=== PATIENT | female | born 1975 | race Caucasian/White ===

== ENCOUNTER 2024-08-12 14:27 | Outpatient (AMB) | payer MEDICAID, SELFPAY ==
[2024-08-12 14:38] VITALS: BP 153/98; PULSE 82; RESP 18; TEMP 36.3; O2SAT 96; BMI 30.6
--- NOTE | 2024-08-12 14:38 | PD.RESCLINIC ---
Vital Signs 08/12/24 14:38 Height 1.83 m Height Method Stated Weight 102.512 kg Weight Measurement Method Standing Scale BMI 30.6 BP 153/98 H Blood Pressure Source Automatic Cuff Blood Pressure Location Left Upper Arm Position Sitting Respiration 18 Pulse 82 Pulse Source Monitor Temp 97.3 F Temp Source Temporal Artery Scan Pulse Oximetry (%) 96 Oxygen Delivery Method Room Air Allergies/Meds Allergies & Medications Allergies morphine Allergy (Severe, Verified 08/12/24 14:39) ITCHING/ALL OVER Medication Reconciliation lisinopril 40 mg tablet 40 mg PO QDAY HTN #30 tabs 01/15/24 [Rx Confirmed 08/12/24] metaxalone 800 mg tablet 800 mg PO TID PRN muscle pain #30 tabs 01/29/24 [Rx Confirmed 08/12/24] albuterol sulfate 90 mcg/actuation aerosol inhaler (Ventolin HFA) 1 inh inhalation QID #8.5 grams 03/28/24 [Rx Confirmed 08/12/24] hydrochlorothiazide 25 mg tablet 25 mg PO QDAY HTN #30 tabs 04/08/24 [Rx Confirmed 08/12/24] tramadol 50 mg tablet 50 mg PO TID PRN pain #90 tabs 05/13/24 [Rx Confirmed 08/12/24] varenicline 1 mg tablet (Chantix Continuing Month Box) 1 mg PO BID #56 tabs 05/13/24 [Rx Confirmed 08/12/24] semaglutide 2 mg/dose (8 mg/3 mL) subcutaneous pen injector (Ozempic) 2 mg (0.75 mL) subcut QWEEK #3 mL 07/29/24 [Rx Confirmed 08/12/24] albuterol sulfate 90 mcg/actuation aerosol inhaler 2 puff inhalation Q6H PRN shortness of breath or wheezing 30 days #8.5 grams 08/12/24 [Rx] apixaban 5 mg tablet (Eliquis) 5 mg PO BID Pulmonary embolus #60 tabs 08/12/24 [Rx] levofloxacin 750 mg tablet 750 mg PO QDAY 5 days #5 tabs 08/12/24 [Rx] nicotine (polacrilex) 4 mg buccal lozenge 4 mg buccal Q4H PRN nicotine cravings #108 ea 08/12/24 [Rx] nicotine 21mg/24hr-14mg/24hr-7mg/24hr daily transderm patches,sequentl 1 patch transdermal QDAY #56 patches 08/12/24 [Rx] MA Intake Visit Data Collection New Patient or Established: Established Patient (seen at [facility] within 3 years) Seen by Clinical Staff ONLY (RN/SCARLET): No Pain Present Currently: Yes Pain Location: Back Pain scale:: 6 Pain Scale Used: Blanco-Boogie/Numerical [employer] Required: No PCP or OBGYN visit in last 3 months: Yes Hx Now: No Do You Feel Safe at Home: Yes Authorities Contacted: N/A Smoking Status Smoking Status: Current every day smoker Cessation Counseling Provided: LETITIA was advised that quitting smoking is the single most important factor to protect the health of themselves and their family. Discussed the benefits of quitting smoking with patient. Encouraged patient to quit smoking and provided Cessation assistance materials and resources. Tobacco Use: Cigarette Years smoked: 33 Are you interested in quitting?: Yes Would you like additional Smoking Cessation Counseling?: No Immunization / Flu Flu Vaccine in the Last 12 Months: No Flu Vaccine Exclusion Criteria: No Exclusion Criteria Past Medical History Past Medical History CARDIAC: Positive Aneurysm (self) and Hypertension; Negative Cardiac Disorders or Congestive Heart Failure RESPIRATORY: Negative Chronic Obstructive Pulmonary Disease (COPD) or Asthma GENITOURINARY: Negative Renal Disease REPRODUCTIVE: Positive Previous Pregnancies (9 preganancies) ENDOCRINE: Negative Diabetes Mellitus Type 1 or Diabetes Mellitus Type 2 HEMATOLOGIC: Positive Blood Disorders and Clotting Problems; Negative Sickle Cell Disease OTHER HISTORY: Negative Autoimmune Disease Family History FAMILY HISTORY: Positive Family Psychiatric Problems, Family Respiratory Disorders (COPD, bronchitis, emphysema), Family Cardiac Disorders (Mother irregular heartbeat, grandfather heart problems), Family Gastrointestinal Problems, Family Cancer and Family Surgery; Negative Family Anesthesia Reaction Surgical History SURGICAL: Positive Tubal Ligation Social History SMOKING STATUS: Smoking status: Current every day smoker PACK YEARS: Pack-Years: 33 ALCOHOL: Alcohol Intake: Never ALCOHOL FREQUENCY: Alcohol Intake Frequency: A Few Times a Month HOUSING: Housing: House LIVES WITH: Lives With: Alone Patient Portal Questionairfei Social History Living Situation History Housing: House Tobacco History Smoking Status: Current every day smoker Packs per Day: 2 Pack-Years: 33 Alcohol History Alcohol Intake: Never Alcohol Intake Frequency: A Few Times a Month Domestic Abuse History Do You Feel Safe at Home: Yes Review of Systems Report any current symptoms Only answer those that you have currently: Past Medical History Past Medical History Have you ever been diagnosed with any of the following: Cardiology Problems Aneurysm: Yes (self) Congestive Heart Failure: No Hypertension: Yes Respiratory Problems Chronic Obstructive Pulmonary Disease (COPD): No Asthma: No Genital/Urinary Problems Renal Disease: No Reproductive Problems Previous Pregnancies: Yes (9 preganancies) Endocrine Problems Diabetes Mellitus Type 1: No Diabetes Mellitus Type 2: No Blood Problems Sickle Cell Disease: No Clotting Problems: Yes Other Problems Autoimmune Disease: No History of Present Illness HPI Narrative 49-year-old female with past medical history of factor V Leyden mutation, HTN, aneurysm and [id number] smoking history presents as walk-in to clinic for acute dyspnea. Patient is concerned she has pneumonia or blood clots in her lungs. Patient endorses paroxysmal nocturnal dyspnea, orthopnea which improves when sitting up or sleeping on her left side, and dyspnea on exertion (gets SOB when walking to daughter's house, 4 houses away). Dyspnea has been going on for last 2 weeks, and is apparent during conversation with patient. Patient endorses having flulike symptoms approximately 1 week ago, and endorses fever, chills, palpitations, pleuritic chest pain, N/V/D/abd pain, and LUTS which have all resolved however productive cough of yellow sputum remains. Dyspnea has not improved with her inhaler which she uses 2-4 times per day. Additionally, patient mentions she has not taken Eliquis in approximately 1 month. Review of Systems Review of Systems Systems Reviewed: All systems reviewed, normal except as documented Objective/Exam Narrative Physical exam: Gen: AAOx3, Appears in mild distress due to conversational dyspnea, pleasant to speak with, answers questions appropriately HEENT: NCAT, PERRLA, EOMI, MMM, no LAD, ?JVD vs accessory muscle use CVS: normal S1, S2. RRR. No MRG Resp: CTA B/L however significantly diminished with decreased air flow. No rhonchi, rales, crackles or wheezing. Using accessory muscles Abd: soft, non-tender, non-distended. BS+ in all 4 quadrants MSK: Good ROM in BUE & BLE. Trace edema noted. Neuro: CN II-XII grossly intact. Strength 5/5 in BUE & BLE. Assessment & Plan Diagnosis / Problem List (1) Acute dyspnea: Status: Acute Assessment & Plan: Differentials include bacterial versus viral pneumonia, COPD exacerbation, PE, new onset CHF Plan: Will obtain stat chest x-ray to rule out pneumonia CBC, CMP, BNP ordered Will order CTA to rule out PE, although this may take several weeks for prior Auth. This was discussed with patient and recommendation was made for patient to present to ED at [facility] for immediate workup. Patient refused to go to ED at this time, and stated she would like to pursue workup outpatient. She was advised to immediately alert EMS if her symptoms worsened Will order Levaquin 750 mg for 5 days; Inhaler refilled (2) Factor V deficiency: Status: Chronic Assessment & Plan: Patient has been without Eliquis for approximately 1 month, now presented with acute dyspnea x 2 weeks Well score was 1.5, however does not include risk for VTE and factor V Leyden deficiency HR and SaO2 on RA were WNL Plan: Dyspnea may be related to pneumonia, however CTA chest was ordered to rule out PE Eliquis was refilled (3) Currently attempting to quit smoking: Status: Acute Assessment & Plan: Patient endorses motivation to quit smoking as she does not like current dyspnea Plan: Will order nicotine patch and lozenges for acute cravings Encourage patient to resume varenicline Advised patient that nicotine may be causing palpitations she was experiencing ~1-2 weeks ago Orders: Orders XR chest 1V 08/12/24 R05.8 - Other specified cough, R06.00 - Dyspnea, unspecified Comprehensive Metabolic Panel 1 Day R06.00 - Dyspnea, unspecified CBC Auto Diff Post-Transfusion 08/12/24 R05.8 - Other specified cough, R06.00 - Dyspnea, unspecified B-Type Natriuretic Peptide 1 Day R06.00 - Dyspnea, unspecified CT angio chest 4 Weeks R06.00 - Dyspnea, unspecified, Z86.2 - Personal history of diseases of the blood and blood-forming organs and certain disorders involving the immune mechanism Office Procedures [facility] Level of Care Nursing/Assessment Patient Status: Established Patient Nursing Assessment/Reassessment: Medication Reconciliation, Update PMH in EMR and Vital Signs Coordination of Care: Complex Care and Chronic Disease 1-5, Consent,records obtained, informed consent, Education Simp Pt/Fam, Lab and Imaging orders and Staff clarify orders Established Patient Charge Established Patient Point Assignment: 100 Established Patient Point Charge: EP Level 3 (80-115)
== END 2024-08-12 16:14 | disposition home or self-care (01) ==
LOC: HODAHC 14:27
PROVIDERS: Supervising Provider Internal Medicine; Visit Provider Student in an Organized Health Care Education/Training Program
DX: R06.00 Dyspnea, unspecified (principal); D68.2 Hereditary deficiency of other clotting factors; F17.210 Nicotine dependence, cigarettes, uncomplicated; I10 Essential (primary) hypertension
CPT/HCPCS: 99213; G0463

== ENCOUNTER → 2024-08-12 | Outpatient (CLI) | payer MEDICAID, SELFPAY ==
--- NOTE | 2024-08-12 16:24 | XR_ITS ---
Examination: PA chest single view Technique: Upright PA chest single view Exam date and time: August 12, 2024 7005 hours Comparison March 28, 2024 Indications: Coughing one week. Findings: Early bibasilar left perihilar pneumonia Normal heart size Moderate osteopenia Impression: Early bibasilar left perihilar pneumonia
== END | disposition home or self-care (01) ==
LOC: CDIM 16:18
PROVIDERS: Referring Provider Student in an Organized Health Care Education/Training Program; Visit Provider Student in an Organized Health Care Education/Training Program
DX: J18.9 Pneumonia, unspecified organism (principal)
CPT/HCPCS: 71045

== ENCOUNTER 2024-11-03 14:39 | Outpatient (AMB) | payer MEDICAID, SELFPAY ==
[2024-11-03 14:48] VITALS: BP 150/93; PULSE 81; RESP 16; TEMP 35.9; O2SAT 96; BMI 29.0
--- NOTE | 2024-11-03 14:48 | ACNOTE_ITS ---
Vital Signs 11/03/24 14:48 Height 1.83 m Height Method Stated Weight 97.296 kg Weight Measurement Method Standing Scale BMI 29.0 BP 150/93 H Blood Pressure Source Automatic Cuff Blood Pressure Location Left Upper Arm Position Sitting Respiration 16 Pulse 81 Pulse Source Monitor Temp 96.6 F L Temp Source Oral Pulse Oximetry (%) 96 Oxygen Delivery Method Room Air Allergies/Meds Allergies & Medications Allergies morphine Allergy (Severe, Verified 11/03/24 14:49) ITCHING/ALL OVER Medication Reconciliation lisinopril 40 mg tablet 40 mg PO QDAY HTN #30 tabs 01/15/24 [Rx Confirmed 11/03/24] metaxalone 800 mg tablet 800 mg PO TID PRN muscle pain #30 tabs 01/29/24 [Rx Confirmed 11/03/24] albuterol sulfate 90 mcg/actuation aerosol inhaler (Ventolin HFA) 1 inh inhalation QID #8.5 grams 03/28/24 [Rx Confirmed 11/03/24] hydrochlorothiazide 25 mg tablet 25 mg PO QDAY HTN #30 tabs 04/08/24 [Rx Confirmed 11/03/24] tramadol 50 mg tablet 50 mg PO TID PRN pain #90 tabs 05/13/24 [Rx Confirmed 11/03/24] varenicline 1 mg tablet (Chantix Continuing Month Box) 1 mg PO BID #56 tabs 05/13/24 [Rx Confirmed 11/03/24] semaglutide 2 mg/dose (8 mg/3 mL) subcutaneous pen injector (Ozempic) 2 mg (0.75 mL) subcut QWEEK #3 mL 07/29/24 [Rx Confirmed 11/03/24] albuterol sulfate 90 mcg/actuation aerosol inhaler 2 puff inhalation Q6H PRN shortness of breath or wheezing 30 days #8.5 grams 08/12/24 [Rx Confirmed 11/03/24] apixaban 5 mg tablet (Eliquis) 5 mg PO BID Pulmonary embolus #60 tabs 08/12/24 [Rx Confirmed 11/03/24] nicotine (polacrilex) 4 mg buccal lozenge 4 mg buccal Q4H PRN nicotine cravings #108 ea 08/12/24 [Rx Confirmed 11/03/24] nicotine 21mg/24hr-14mg/24hr-7mg/24hr daily transderm patches,sequentl 1 patch transdermal QDAY #56 patches 08/12/24 [Rx Confirmed 11/03/24] semaglutide 2 mg/dose (8 mg/3 mL) subcutaneous pen injector (Ozempic) 2 mg (0.75 mL) subcut QWEEK #3 mL 11/03/24 [Rx] MA Intake Visit Data Collection New Patient or Established: Established Patient (seen at [facility] within 3 years) Seen by Clinical Staff ONLY (RN/MA): No Pain Present Currently: No Pain scale:: 0 Pain Scale Used: Blanco-Boogie/Numerical Urban Forester Required: No PCP or OBGYN visit in last 3 months: Yes Date of Last PCP or OBGYN visit: 08/12/24 Hx Now: No Date of Last Menstrual Period: 10/25/24 Do You Feel Safe at Home: Yes Authorities Contacted: N/A Smoking Status Smoking Status: Current every day smoker Cessation Counseling Provided: LETITIA was advised that quitting smoking is the single most important factor to protect the health of themselves and their family. Discussed the benefits of quitting smoking with patient. Encouraged patient to quit smoking and provided Cessation assistance materials and resources. Tobacco Use: Cigarette Years smoked: 33 Are you interested in quitting?: No Would you like additional Smoking Cessation Counseling?: No Immunization / Flu Flu Vaccine in the Last 12 Months: No Flu Vaccine Exclusion Criteria: No Exclusion Criteria Past Medical History Past Medical History CARDIAC: Positive Aneurysm (self) and Hypertension; Negative Cardiac Disorders or Congestive Heart Failure RESPIRATORY: Negative Chronic Obstructive Pulmonary Disease (COPD) or Asthma GENITOURINARY: Negative Renal Disease REPRODUCTIVE: Positive Previous Pregnancies (9 preganancies) ENDOCRINE: Negative Diabetes Mellitus Type 1 or Diabetes Mellitus Type 2 HEMATOLOGIC: Positive Blood Disorders and Clotting Problems; Negative Sickle Cell Disease OTHER HISTORY: Negative Autoimmune Disease Family History FAMILY HISTORY: Positive Family Psychiatric Problems, Family Respiratory Disorders (COPD, bronchitis, emphysema), Family Cardiac Disorders (Mother irregular heartbeat, grandfather heart problems), Family Gastrointestinal Problems, Family Cancer and Family Surgery; Negative Family Anesthesia Reaction Surgical History SURGICAL: Positive Tubal Ligation Social History SMOKING STATUS: Smoking status: Current every day smoker PACK YEARS: Pack-Years: 33 ALCOHOL: Alcohol Intake: Never ALCOHOL FREQUENCY: Alcohol Intake Frequency: A Few Times a Month HOUSING: Housing: House LIVES WITH: Lives With: Alone Patient Portal Questionaires PHQ-9 PHQ-2 Over the last 2 weeks, how often have you been bothered by any of the following problems? 1. Little interest or pleasure in doing things: not at all 2. Feeling down, depressed, or hopeless: not at all Total score: 0 PHQ-9 3. Trouble falling or staying asleep, or sleeping too much: Not at all 4. Feeling tired or having little energy: Not at all 5. Poor appetite or overeating: Not at all 6. Feeling bad about yourself - or that you are a failure or have let yourself or your family down: Not at all 7. Trouble concentrating on things, such as reading the newspaper or watching television: Not at all 8. Moving or speaking so slowly that other people could have noticed? - Or the opposite - being so fidgety or restless that you have been moving around a lot more than usual: not at all 9. Thoughts that you would be better off or of hurting yourself in some way: Not at all Total score: 0 Source: Developed by Drs. Khoa Toledo, Mariam Metcalf, Vj Crandall and colleagues, with an educational carina from [email or web address]. Depression screen completed yes Social History Living Situation History Housing: House Tobacco History Smoking Status: Current every day smoker Packs per Day: 2 Pack-Years: 33 Alcohol History Alcohol Intake: Never Alcohol Intake Frequency: A Few Times a Month Domestic Abuse History Do You Feel Safe at Home: Yes Review of Systems Report any current symptoms Only answer those that you have currently: Past Medical History Past Medical History Have you ever been diagnosed with any of the following: Cardiology Problems Aneurysm: Yes (self) Congestive Heart Failure: No Hypertension: Yes Respiratory Problems Chronic Obstructive Pulmonary Disease (COPD): No Asthma: No Genital/Urinary Problems Renal Disease: No Reproductive Problems Previous Pregnancies: Yes (9 preganancies) Endocrine Problems Diabetes Mellitus Type 1: No Diabetes Mellitus Type 2: No Blood Problems Sickle Cell Disease: No Clotting Problems: Yes Other Problems Autoimmune Disease: No History of Present Illness HPI Narrative 08/12/2024 49-year-old female with past medical history of factor V Leyden mutation, HTN, aneurysm and [id number] smoking history presents as walk-in to clinic for acute dyspnea. Patient is concerned she has pneumonia or blood clots in her lungs. Patient endorses paroxysmal nocturnal dyspnea, orthopnea which improves when sitting up or sleeping on her left side, and dyspnea on exertion (gets SOB when walking to daughter's house, 4 houses away). Dyspnea has been going on for last 2 weeks, and is apparent during conversation with patient. Patient endorses having flulike symptoms approximately 1 week ago, and endorses fever, chills, palpitations, pleuritic chest pain, N/V/D/abd pain, and LUTS which have all resolved however productive cough of yellow sputum remains. Dyspnea has not improved with her inhaler which she uses 2-4 times per day. Additionally, patient mentions she has not taken Eliquis in approximately 1 month. 11/03/24 49 y/o female patient with significant medical history for HTN, factor V Leyden mutation and current smoker came to clinic for lab results and medication refill. Patient was last seen in clinic on 08/12/24 for chest pain and SOB. Since last visit, patient is doing well, does not complain of chest pain or SOB. Patient continues to smoke, but is willing to quit. She was prescribed nicotine patch but patient has not started it yet. Labs were completed in [facility], reviewed lab with patient. CBC and CMP indicated mild elevation of HgB, Hct, creatinine (1.19). Most likely due to concentration/dehydration. Patient admits not drinking enough water but does drink soda. Educated and encouraged patient with smoking cessation. Refilled Ozempic for patient, she has approximetly lost 30 lbs since starting medicaiton. Will follow up with patient in x2 months. Review of Systems Review of Systems Systems Reviewed: All systems reviewed, normal except as documented Objective/Exam Narrative Physical exam: Constitutional: well-developed, well-nourished, in no acute distress, lying in bed HEENT: NCAT, EOMI, reactive round pupils b/l, patent nares b/l, moist mucous membranes Lung: CTAB, no wheezing, no rhonchi Heart: Regular S1S2, no murmurs, gallops, or rubs Abdomen: Soft, non-distended, non-tender, bowel sounds present throughout Extremities: No cyanosis, clubbing, or edema, LE pulses present b/l Neurologic: No focal sensory or motor deficits noted, AOx3, appropriate affect Skin: Warm, dry, no lesions or rashes noted Assessment & Plan Diagnosis / Problem List (1) Obesity (BMI 30.0-34.9): Status: Acute Assessment & Plan: Patient started on ozempic for weight loss Has lost approx 30 lbs Continues to drink soda Plan: -Encouraged healthy eating -Refilled Ozempic -Reviewed lab results: A1C 5.4, Infantry Weapons Officer 1.19, eGFR 57 (2) Factor V deficiency: Status: Chronic Assessment & Plan: Patient on Eliquis Vitals WNL Plan: -Continue Eliquis (3) Currently attempting to quit smoking: Status: Acute Assessment & Plan: Patient endorses motivation to quit smoking as she does not like current dyspnea Plan: -Educated patient on smoking sessation -Recommended to start nicotine patch and lozenges for acute cravings -Encourage patient to resume varenicline Office Procedures [facility] Level of Care Nursing/Assessment Patient Status: Established Patient Nursing Assessment/Reassessment: Medication Reconciliation, Update PMH in EMR and Vital Signs Coordination of Care: Complex Care and Chronic Disease 1-5, Consent,records obtained, informed consent, Education Simp Pt/Fam, Lab and Imaging orders, Results/Orders obtained and Staff clarify orders Established Patient Charge Established Patient Point Assignment: 105 Established Patient Point Charge: EP Level 3 (80-115)
== END 2024-11-03 15:22 | disposition home or self-care (01) ==
LOC: HODAHC 14:39
PROVIDERS: Supervising Provider Internal Medicine; Visit Provider Internal Medicine
DX: I10 Essential (primary) hypertension (principal); F17.200 Nicotine dependence, unspecified, uncomplicated; E66.9 Obesity, unspecified; Z68.29 Body mass index [BMI] 29.0-29.9, adult; D68.2 Hereditary deficiency of other clotting factors; Z76.0 Encounter for issue of repeat prescription; Z79.01 Long term (current) use of anticoagulants; Z71.6 Tobacco abuse counseling
CPT/HCPCS: 99213; G0463

== ENCOUNTER 2025-01-21 12:35 | Emergency (ER) | payer BC, SELFPAY ==
[2025-01-21] VITALS (7 sets, daily range): BP systolic 170–192; BP diastolic 93–129; PULSE 86–104; RESP 18–30; TEMP 36.6–36.9; O2SAT 94–100; BMI 32.1
--- NOTE | 2025-01-21 12:55 | XR_ITS ---
Examination: PA lateral chest 2 views TECHNIQUE: Upright PA lateral chest 2 views Date and time: January 21, 2025 1359 hours INDICATIONS: Shortness of breath today. FINDINGS: Mild enlargement cardiac contour Moderate vascular congestion Small right pleural effusion No lobar pneumonia IMPRESSION: Suspicious for early heart failure Moderate vascular congestion Small right pleural effusion
--- NOTE | 2025-01-21 12:55 | XR_ITS ---
Examination: Duplex scan of the lower extremity, unilateral right complete Date and time of exam: January 21, 2025 1305 hours INDICATIONS: Right leg swelling with shortness of breath 2 weeks Technique: Duplex scan of the extremity veins using B-mode/grayscale imaging and Doppler spectral analysis and color flow Attention is directed to internal echogenicity, compression and augmentation involving these veins, color flow assessment, spectral analysis Findings: Major deep venous structures in the extremity demonstrate normal course and caliber. There is no evidence of deep vein thrombosis. Normal color flow and spectral analysis Impression: Negative for DVT.. Positive for nonocclusive thrombus in the superficial greater saphenous vein
--- NOTE | 2025-01-21 12:55 | EKG_ITS ---
[facility] Test Date: 2025-01-21 Pat Name: LETITIA DAWSON Department: Room: - Gender: Female Biostatistics Director: : 1975 Requested By: Aamir Gomez Order Number: [id number] Reading MD: Aamir Gomez Measurements Intervals [place] Rate: 102 P: 42 ID: [id number] QRS: 62 QRSD: 85 T: 34 QT: 347 QTc: 454 Interpretive Statements SINUS TACHYCARDIA NONSPECIFIC T-WAVE ABNORMALITY ABNORMAL RHYTHM ECG Compared to ECG 03/28/2024 11:06:00 T-wave abnormality now present Sinus rhythm no longer present /store/S0/[id number].pdf
--- NOTE | 2025-01-21 12:57 | PD.EDRME ---
Rapid Medical Screening Exam RME Arrival date/time: 01/21/25 12:35 This is a case of 49-year-old female who came in in the emergency room due to shortness of breath chest pain and right lower edema for 3 days worsening of the symptoms this patient decided to start consult here in the emergency room Chief Complaint: Shortness of Breath/Dyspnea Time Seen by Provider: 01/21/25 12:53 Vital signs: Vital Signs Temperature 97.8 F 01/21/25 12:55 Pulse Rate 100 01/21/25 12:55 Respiratory Rate 18 01/21/25 12:55 Blood Pressure 170/93 H 01/21/25 12:55 Pulse Oximetry (%) 94 L 01/21/25 12:55 Oxygen Delivery Method Room Air 01/21/25 12:55
[2025-01-21 13:45] LABS: Basophils # (Auto) 0.1 Thou/mm3 (0.0-0.2); Basophils % (Auto) 1 % (0-2.5); Eosinophils # (Auto) 0.2 Thou/mm3 (0.0-0.5); Eosinophils % (Auto) 2 % (0-10); Hematocrit 41.5 % (36.0-46.0); Hemoglobin 13.9 g/dL (12.0-16.0); Immature Granulocytes % (Auto) 0 % (0-0); Immature Granulocytes Auto 0.03 Thou/mm3 (0.00-0.00); Lymphocytes # (Auto) 2.6 Thou/mm3 (1.0-4.8); Lymphocytes % (Auto) 25 % (10-50); Mean Corpuscular HGB Conc 33.5 g/dl (31.0-37.0); Mean Corpuscular Hemoglobin 29.3 pg (25.0-35.0); Mean Corpuscular Volume 87 fL (80-100); Monocytes # (Auto) 0.6 Thou/mm3 (0.0-0.8); Monocytes % (Auto) 6 % (0-12); Neutrophils # (Auto) 6.8 Thou/mm3 (1.8-7.7); Neutrophils % (Auto) 66 % (37-80); Nucleated Red Blood Cell % 0 /100 WBC (0); Platelet Count 210 Thou/mm3 (140-440); RDW Standard Deviation 44.5 fL (36.4-46.3); Red Blood Count 4.75 Miln/mm3 (4.00-5.20); White Blood Count 10.3 Thou/mm3 (3.6-11.0)
[2025-01-21 13:57] LABS: HCG,Qualitative Serum Negative
[2025-01-21 14:02] LABS: B-Type Natriuretic Peptide 889 pg/mL (0-100)
[2025-01-21 14:03] LABS: Alanine Aminotransferase 54 U/L (10-49); Albumin, Serum 4.2 gm/dL (3.5-5.0); Alkaline Phosphatase 138 U/L (46-116); Anion Gap 7 (7-16); Aspartate Amino Transferase 31 U/L (0-34); BUN/Creatinine Ratio 14 Ratio (12-20); Bilirubin,Total 0.8 mg/dL (0.3-1.2); Blood Urea Nitrogen 18 mg/dL (9-23); Calcium 9.4 mg/dL (8.3-10.6); Calcium (Corrected) 9.4 mg/dL (8.5-10.1); Carbon Dioxide 32.2 mMol/L (20.0-31.0); Chloride 107 mMol/L (98-107); Creatinine (Component) 1.3 mg/dL (0.6-1.3); Estimated Creatinine Clearance 73.4 mL/min (>60); Globulin 2.1 gm/dL (2.3-3.5); Glucose 72 mg/dL (74-106); Osmolality,Calculated 291 (275-295); Potassium 3.9 mMol/L (3.4-5.1); Sodium 146 mMol/L (136-145); Total Protein 6.3 gm/dL (5.7-8.2); eGFR 51 See Note
[2025-01-21 14:29] LABS: D-Dimer 2490 ng/mL (<600)
--- NOTE | 2025-01-21 15:30 | XR_ITS ---
Examination: CTA chest with intravenous contrast 2-D reconstructions 3-D reconstructions, vascular Date and time of exam: Using 2024 1602 hours Comparison June 06, 2023 INDICATIONS: Onset chest pain and shortness of breath beginning several days ago CTDI: vol (mGy) 11 DLP: (mGycm) 420 Technique: Multiple axial sections of the thorax have been obtained. 3 mm slice thickness, from below the hemidiaphragms to above the apices of the lungs. Mediastinal and lung density settings have been obtained. 2-D sagittal and coronal reconstructions. 3-D angiographic renderings, 3-D volume renderings, 3D post processing, vascular maximum intensity projections obtained. Contrast administered is 100 cc Isovue 370 intravenous. Low dose protocols were performed. One or more of the following dose reduction techniques were used; automated exposure control, adjustment of the mA and/or KV according to patient size, use of iterative reconstruction technique. Findings: No thoracic aortic aneurysm dilatation No pulmonary artery filling defects No lobar pneumonia or pulmonary edema Liver is mildly irregular in contour, absent gallbladder Spleen is not enlarged Celiac axis stent Kidneys partially visualized no hydronephrosis Intact osseous structures IMPRESSION: No thoracic aortic aneurysm dilatation or dissection Negative for pulmonary artery emboli No lobar pneumonia or pulmonary edema Suspect primary hepatocellular disease
--- NOTE | 2025-01-21 15:33 | EDNOTE_ITS ---
ED General RME/HPI General Chief complaint: Shortness of Breath/Dyspnea Stated complaint: SOB x 2 weeks, swollen legs Time Seen by Provider: 01/21/25 12:53 Arrival date/time: 01/21/25 12:35 Limitations: no limitations RME / HPI RME / HPI narrative: 01/21/25 12:35 This is a case of 49-year-old female who came in in the emergency room due to shortness of breath chest pain and right lower edema for 3 days worsening of the symptoms this patient decided to start consult here in the emergency room DR. OHARA MAIN ED EVALUATION: 49 year old female presents to the Emergency Department with complaints of shortness of breath and bilateral lower edema and pain. Patient had uncontrollable hypertension. No other symptoms reported at this time. Related Data Previous Rx's ?Medication ?Instructions ?Recorded metaxalone 800 mg tablet 800 mg PO TID PRN muscle dannielle n #30 01/29/24 tabs albuterol sulfate 90 mcg/actuation 1 inh inhalation QI D #8.5 grams 03/28/24 aerosol inhaler (Ventolin HFA) hydrochlorothiazide 25 mg tablet 25 mg PO QDAY HTN #30 tabs 04/08/24 tramadol 50 mg tablet 50 mg PO TID PRN pain #90 ta bs 05/13/24 varenicline tartrate 1 mg tablet 1 mg PO BID #56 tabs 05/13/24 (Chantix Continuing Month Box) semaglutide 2 mg/dose (8 mg/3 mL) 2 mg (0.75 mL) subcu t QWEEK #3 mL 07/29/24 subcutaneous pen injector (Ozempic) nicotine (polacrilex) 4 mg buccal 4 mg buccal Q4H PRN nicotine 08/12/24 lozenge cravings #108 ea nicotine 1 patch transdermal QDAY #56 08/12/24 21mg/24hr-14mg/24hr-7mg/24hr daily patches transderm patches,sequentl albuterol sulfate 2.5 mg/3 mL 2.5 mg (3 mL) inhalation Q4H PRN 01/21/25 (0.083 %) solution for nebulization bronchospasm #180 mL albuterol sulfate 90 mcg/actuation 2 puff inhalation Q 6H PRN 01/21/25 aerosol inhaler shortness of breath or wheez ing 30 days #8.5 grams albuterol sulfate 90 mcg/actuation 2 inh inhalation QI D #1 ea 01/21/25 breath activated powder inhaler,sensor (Proair Digihaler) amlodipine 10 mg tablet (Norvasc) 10 mg PO QDAY #30 ta bs 01/21/25 apixaban 5 mg tablet (Eliquis) 5 mg PO BID Pulmonary e mbolus #60 01/21/25 tabs beclomethasone dipropionate 40 1 inh inhalation BID #1 0.6 grams 01/21/25 mcg/actuation HFA breath activated aerosol (Qvar RediHaler) lisinopril 40 mg tablet 40 mg PO QDAY HTN #30 tabs 0 01/21/25 semaglutide 2 mg/dose (8 mg/3 mL) 2 mg (0.75 mL) subcu t QWEEK #3 mL 01/21/25 subcutaneous pen injector (Ozempic) Allergies Allergy/AdvReac Type Severity Reaction Status Date / Time morphine Allergy Severe ITCHING/ALL Verified 01/21/25 12:43 OVER Review of Systems Review of Systems Systems Reviewed: All systems reviewed, normal except as documented Past Medical History Past Medical History CARDIAC: Positive Cardiac Disorders (htn, chf), Aneurysm (self) and Hypertension RESPIRATORY: Positive Asthma REPRODUCTIVE: Positive Previous Pregnancies (9 preganancies) HEMATOLOGIC: Positive Blood Disorders and Clotting Problems (factor 5) Family History FAMILY HISTORY: Positive Family Psychiatric Problems, Family Respiratory D isorders, Family Cardiac Disorders, Family Gastrointestinal Problems, Family Cancer and Family Surgery Surgical History SURGICAL: Positive Tubal Ligation Social History SMOKING STATUS: Current every day smoker SUBSTANCE USE: does not use ALCOHOL: Never ED Exam General Limitations: Present no limitations General appearance: Present alert and in no apparent distress Head Head exam: Present atraumatic, normocephalic and normal inspection Eye Eye exam: Present normal appearance, PERRL and EOMI ENT ENT exam: Present normal exam, normal oropharynx and mucous membranes moist Neck Neck exam: Present normal inspection, full ROM and trachea midline Chest Chest inspection: Present normal inspection and symmetric chest wall rise Respiratory Respiratory exam: Present normal lung sounds bilaterally Cardiovascular Cardiovascular exam: Present regular rate, normal rhythm, normal heart sounds and other (4/6 mitral regurgitation (MR) murmur) Abdominal Exam Abdominal exam: Present soft and normal bowel sounds Extremities Exam Extremities exam: Present normal inspection and full ROM Back Exam Back exam: Present normal inspection and full ROM Neurological Exam Neurological exam: Present alert, oriented X3 and CN II-XII intact Psychiatric Psychiatric exam: Present normal affect and normal mood Skin Skin exam: Present warm, dry, intact and normal color Course Quality Measures none Orders Category Date Time Status CT Screening NOW Care 01/21/25 15:30 Completed EKG (ED ONLY) *Do not use* NOW Care 01/21/25 12:[address] angio chest Stat Exams 01/21/25 15:30 Completed EKG (ED Only) Stat Exams 01/21/25 12:55 Draft US venous doppler LE RT Stat Exams 01/21/25 12:55 Completed XR chest 1V Stat Exams 01/21/25 12:55 Completed BNP [B-Type Natriuretic Peptide] Stat Lab 01/21/25 13:28 Completed CBC Stat Lab 01/21/25 13:28 Completed CMP [Comprehensive Metabolic Panel] Stat Lab 01/21/25 13:28 Completed D-Dimer Stat Lab 01/21/25 13:28 Completed HCG,Qualitative Serum Stat Lab 01/21/25 13:28 Completed Albuterol/Ipratr Rt Maricruz [Duoneb Rt Maricruz] Med 01/21/25 17:07 Discontinued 3 ml INH X1 ONE DiphenhydrAMINE INJ [Benadryl Inj] Med 01/21/25 17:08 Discontinued 25 mg IVP X1 ONE hydrALAZINE INJ [Apresoline Inj] Med 01/21/25 15:30 Discontinued 20 mg IVP X1 ONE Vital Signs Vital signs: Vital Signs Temperature 97.8 F 01/21/25 12:55 Pulse Rate 100 01/21/25 12:55 Respiratory Rate 18 01/21/25 12:55 Blood Pressure 170/93 H 01/21/25 12:55 Pulse Oximetry (%) 94 L 01/21/25 12:55 Oxygen Delivery Method Room Air 01/21/25 12:55 Critical Care Time Critical Care Time Critical Care Time: Yes Total Critical Care Time (min.): 35 Attestation: required multiple checks and reexamination after treatment Discharge Plan Plan Patient Disposition: HOME (Self Care) Patient condition on transfer: Stable Prescriptions/Referrals Prescriptions/Med Rec: New amlodipine [Norvasc] 10 mg tablet 10 mg PO QDAY Qty: 30 0RF Qvar RediHaler 40 mcg/actuation HFA aerosol breath activated 1 inh inhalation BID Qty: 10.6 0RF Rx Instructions: administer with spacer albuterol sulfate 2.5 mg /3 mL (0.083 %) solution for nebulization 2.5 mg inhalation Q4H PRN (Reason: bronchospasm) Qty: 180 0RF Proair Digihaler 90 mcg/actuation aero powdr breath act w/sensor 2 inh inhalation QID Qty: 1 0RF No Action metaxalone 800 mg tablet 800 mg PO TID PRN (Reason: muscle pain) Qty: 30 0RF hydrochlorothiazide 25 mg tablet 25 mg PO QDAY MDD 25 mg Qty: 30 5RF tramadol 50 mg tablet 50 mg PO TID PRN (Reason: pain) Qty: 90 0RF varenicline tartrate [Chantix Continuing Month Box] 1 mg tablet 1 mg PO BID MDD 2 mg Qty: 56 4RF nicotine 21-14-7 mg/24 hr patch, TD daily, sequential 1 patch transdermal QDAY Qty: 56 0RF nicotine (polacrilex) 4 mg lozenge 4 mg buccal Q4H MDD 40 PRN (Reason: nicotine cravings) Qty: 108 2RF Rx Instructions: Take 1 lozenge every 2-3 hours as needed for cravings Ozempic 2 mg/dose (8 mg/3 mL) pen injector 2 mg subcut QWEEK Qty: 3 2RF albuterol sulfate 90 mcg/actuation HFA aerosol inhaler 2 puff inhalation Q6H PRN (Reason: shortness of breath or wheezing) 30 Days Qty: 8.5 1RF lisinopril 40 mg tablet 40 mg PO QDAY MDD 40 mg Qty: 30 5RF Eliquis 5 mg tablet 5 mg PO BID MDD 10 mg Qty: 60 3RF Ozempic 2 mg/dose (8 mg/3 mL) pen injector 2 mg subcut QWEEK Qty: 3 2RF albuterol sulfate [Ventolin HFA] 90 mcg/actuation HFA aerosol inhaler 1 inh inhalation QID Qty: 8.5 0RF Referrals: No Primary/Family,Physician [Primary Care Provider] - In 1 week Problem List Clinical Impression: Bronchospasm, Hypertension, Heart murmur Patient/Caregiver Discharge Instructions Education Materials: ED Bronchospasm (Adult), ED High Blood Pressure ... Print Language: Maldivian Stand Alone Forms: [facility] Award Info., Patient Portal Info Letter MDM Narrative MDM hospital course: Patient does not have DVT, rather superficial non obstructive clots, which she takes Eliquis. Was negative for DVT. Improved SOB with Duobeb, consistent with Asthma/Bronchospasm. BP is high. Added Norvasc. Will need cardiology referral for her heart murmur, most likely mitral regurgitation. Clinical Information Provided by patient Medical Records Reviewed [facility] Meds/Rx Considered, not Ordered None Labs/Rad/Tests considered, not Ordered None Chronic Illness/Social Conditions Add or document further as needed: uncontrollable hypertension EKG EKG Interpretation narrative: My interpretation: EKG performed at 1258 hours, sinus rhythm, rate 102, no STEMI Imaging Radiology reports / interpretation(s): Procedure(s): XR chest 1V Accession Number(s): [id number] cc: Stewart Tripp MD; NO PRIMARY/FAMILY,PHYSICIAN; Aamir Ojeda~ Examination: PA lateral chest 2 views TECHNIQUE: Upright PA lateral chest 2 views Date and time: January 21, 2025 1359 hours INDICATIONS: Shortness of breath today. FINDINGS: Mild enlargement cardiac contour Moderate vascular congestion Small right pleural effusion No lobar pneumonia IMPRESSION: Suspicious for early heart failure Moderate vascular congestion Small right pleural effusion Dictated By: Stewart Tripp MD Procedure(s): US venous doppler LE RT Accession Number(s): [id number] cc: Stewart Tripp MD; NO PRIMARY/FAMILY,PHYSICIAN; Aamir Ojeda~ Examination: Duplex scan of the lower extremity, unilateral right complete Date and time of exam: January 21, 2025 1305 hours INDICATIONS: Right leg swelling with shortness of breath 2 weeks Technique: Duplex scan of the extremity veins using B-mode/grayscale imaging and Doppler spectral analysis and color flow Attention is directed to internal echogenicity, compression and augmentation involving these veins, color flow assessment, spectral analysis Findings: Major deep venous structures in the extremity demonstrate normal course and caliber. There is no evidence of deep vein thrombosis. Normal color flow and spectral analysis Impression: Negative for DVT.. Positive for nonocclusive thrombus in the superficial greater saphenous vein Dictated By: Stewart Tripp MD Medication Administration(s) Medication Administration History Discontinued Medications Albuterol/Ipratropium (Albuterol/Ipratropium (Duoneb) Rt Maricruz 3 Ml Nebu) 3 ml INH X1 ONE Stop: 01/21/25 17:08 Last Admin: 01/21/25 17:17 Dose: 3 ml Documented By: EV Diphenhydramine HCl (Diphenhydramine Inj 50 Mg/Ml Vial) 25 mg IVP X1 ONE Stop: 01/21/25 17:09 Last Admin: 01/21/25 17:17 Dose: 25 mg Documented By: VL Hydralazine HCl (Hydralazine Inj 20 Mg/Ml Vial) 20 mg IVP X1 ONE Stop: 01/21/25 15:31 Last Admin: 01/21/25 15:34 Dose: 20 mg Documented By: VL Diagnosis Differential diagnosis: DVT, CHF, hypertensive emergency
[2025-01-21] MEDS: hydrALAZINE INJ 20 MG/ML VIAL IVP (15:34)
--- NOTE | 2025-01-21 16:43 | PC.NURSE ---
Patient back from CT, patient feeling increased shortness of breath. Patient flushed skin to face. Patient states she felt more shortness of breath when she got back from CT. Blood pressure still elevated at 182/109. Patient is alert and oriented X4, has chills O2 saturation 97% on room air. Plan of care ongoing. Dr. Barnhart notified.
--- NOTE | 2025-01-21 17:12 | PC.NURSE ---
Dr. Quiñonezour in to asses patient at bedside. has put in order for breathing treatment and Benadryl IV 25mg. Patient in agreement with plan. MD aware of high BP
[2025-01-21] MEDS: ALBUTEROL/IPRATROPIUM (Duoneb) RT SOL 3 ML NEBU INH (17:17)
[2025-01-21] MEDS: DiphenhydrAMINE INJ 50 MG/ML VIAL 25 MG IVP (17:17)
== END 2025-01-21 19:00 | disposition home or self-care (01) ==
PROVIDERS: Nurse Practitioner Family; Emergency Provider Emergency Medicine
DX: J98.01 Acute bronchospasm (principal); R01.1 Cardiac murmur, unspecified; I82.811 Embolism and thrombosis of superficial veins of right lower extremity; I11.0 Hypertensive heart disease with heart failure; I50.9 Heart failure, unspecified; R00.0 Tachycardia, unspecified; F17.210 Nicotine dependence, cigarettes, uncomplicated
CPT/HCPCS: 36415; 71045; 71275; 80053; 83880; 84703; 85025; 85379; 93005; 93971; 94640; 96374; 96375; A4649; A9270; J0360; J1200; Q9967

== ENCOUNTER 2025-01-22 17:32 | Emergency (ER) | payer BC, SELFPAY ==
[2025-01-22 18:38] VITALS: BP 189/125; BP 208/141; PULSE 115; RESP 19; TEMP 36.8; O2SAT 97; BMI 30.5
--- NOTE | 2025-01-22 18:47 | EDNOTE_ITS ---
ED SOB =RME/HPI General Chief Complaint: Dental/Oral/Throat Stated Complaint: sent by primary for admission, throat swelling Time Seen by Provider: 01/22/25 18:46 Arrival date/time: 01/22/25 17:32 RME / HPI RME / HPI Narrative: This section includes all my notes and documentations, including HPI, PE, and ED course. Remington Rees MD HPI: 49 y/o female with Hx of HTN, CHF and Factor V clotting disorder presents with anterior neck swelling x today. Patient was seen in ED here last night for BLE swelling and SOB. Was told she has fluid in her lungs. Uncertain about prescription for diuretics. Denies fever and sore throat. She is able to swallow without difficulty. She takes Eliquis and Lisinopril. No other complaints. ROS: All negative except as documented in HPI. Physical Exam: General: Alert and oriented. No acute distress when remaining still. High BP noted. Eyes: Conjunctivae and lids clear. ENT: No nasal congestion. Pharynx normal. TM normal bilaterally. Neck: Supple. Submandibular adenopathy noted. Heart: RRR. Lungs: No respiratory distress. Good air movement. No rhonchi, wheezing, rales. Abdomen: Soft and nontender. Normal bowel sounds. No distension. No rebound or guarding. Back: No CVA tenderness. Skin: Warm and dry. Neuro: Alert and oriented X 3. I reviewed all diagnostic test results: My interpretation of the chest x-ray is increased vascular congestion. My review of the Head CT report is: NAD. My review of the Soft Tissue Neck CT report is: Enlarged submandibular glands consistent with sialadenitis. Sclerotic lesion C7 left vertebral body pedicle and lamina worrisome for osteoblastic metastasis. Blood and urine test remarkable for BNP 725. At this point, diagnoses include: Sialadenitis and CHF. Treatment here included: Catapres, Lopressor, and Augmentin. Significant treatment noted. Recommended outpatient care. Based on my best medical judgment, made decision no further evaluation or treatment indicated at this time. Patient understands and agrees to the discharge instructions customized and printed, see below. Discharge Instructions from Dr. Rees printed for you: 1. After evaluation, your neck swelling is due to infection/inflammation of y our salivary glands. Take Augmentin and prednisone for the infection/inflammation. 2. For congestive heart failure, fluid in your lungs, take Lasix daily as prescribed. Elevate head of bed and elevate your feet/ankles above your waist level when resting or sitting or sleeping. Don't go out of your way to drink extra fluid, only drink when you are thirsty. Lasix can lower potassium level, eat a banana daily. 3. See a private doctor outside the ER on 01/24/25 for recheck and further care. This is extremely important because you will need more care not available here in the ER. Ask to help until you are completely better. Ask for help with better management of your high BP. Ask to review all test results and official radiology reports, to make sure you receive all necessary follow-ups and monitoring. Including lesions seen on cervical vertebrae #7, you will need MRI imaging not available here in the ER currently. To make sure there is no serious underlying heart condition, ask to help you get more tests for your heart that cannot be done here in the ER. Such as Holter Monitor (cardiac monitoring at home from a day to even a month), heart stress test (on treadmill or with medication), echocardiogram (imaging of your heart structures), heart catherization (checking for blockages in your heart arteries), and a referral to see a Manager Event. 4. Seek immediate medical care with worsening or with any concerns. Remington Rees MD Related Data Previous Rx's ?Medication ?Instructions ?Recorded metaxalone 800 mg tablet 800 mg PO TID PRN muscle dannielle n #30 01/29/24 tabs albuterol sulfate 90 mcg/actuation 1 inh inhalation QI D #8.5 grams 03/28/24 aerosol inhaler (Ventolin HFA) hydrochlorothiazide 25 mg tablet 25 mg PO QDAY HTN #30 tabs 04/08/24 tramadol 50 mg tablet 50 mg PO TID PRN pain #90 ta bs 05/13/24 varenicline tartrate 1 mg tablet 1 mg PO BID #56 tabs 05/13/24 (Chantix Continuing Month Box) semaglutide 2 mg/dose (8 mg/3 mL) 2 mg (0.75 mL) subcu t QWEEK #3 mL 07/29/24 subcutaneous pen injector (Ozempic) nicotine (polacrilex) 4 mg buccal 4 mg buccal Q4H PRN nicotine 08/12/24 lozenge cravings #108 ea nicotine 1 patch transdermal QDAY #56 08/12/24 21mg/24hr-14mg/24hr-7mg/24hr daily patches transderm patches,sequentl albuterol sulfate 2.5 mg/3 mL 2.5 mg (3 mL) inhalation Q4H PRN 01/21/25 (0.083 %) solution for nebulization bronchospasm #180 mL albuterol sulfate 90 mcg/actuation 2 puff inhalation Q 6H PRN 01/21/25 aerosol inhaler shortness of breath or wheez ing 30 days #8.5 grams albuterol sulfate 90 mcg/actuation 2 inh inhalation QI D #1 ea 01/21/25 breath activated powder inhaler,sensor (Proair Digihaler) amlodipine 10 mg tablet (Norvasc) 10 mg PO QDAY #30 ta bs 01/21/25 apixaban 5 mg tablet (Eliquis) 5 mg PO BID Pulmonary e mbolus #60 01/21/25 tabs beclomethasone dipropionate 40 1 inh inhalation BID #1 0.6 grams 01/21/25 mcg/actuation HFA breath activated aerosol (Qvar RediHaler) lisinopril 40 mg tablet 40 mg PO QDAY HTN #30 tabs 0 01/21/25 semaglutide 2 mg/dose (8 mg/3 mL) 2 mg (0.75 mL) subcu t QWEEK #3 mL 01/21/25 subcutaneous pen injector (Ozempic) amoxicillin 875 mg-potassium 1 tab PO BID #20 tabs clavulanate 125 mg tablet furosemide 20 mg tablet (Lasix) 20 mg PO QDAY #30 tabs 01/22/25 prednisone 50 mg tablet 50 mg PO QDAY #3 tabs Allergies Allergy/AdvReac Type Severity Reaction Status Date / Time morphine Allergy Severe ITCHING/ALL Verified 01/22/25 17:36 OVER Review of Systems Review of Systems Systems Reviewed: All systems reviewed, normal except as documented Past Medical History Past Medical History CARDIAC: Positive Cardiac Disorders (htn, chf), Aneurysm (self) and Hypertension RESPIRATORY: Positive Asthma REPRODUCTIVE: Positive Previous Pregnancies (9 preganancies) HEMATOLOGIC: Positive Blood Disorders and Clotting Problems (factor 5) Family History FAMILY HISTORY: Positive Family Psychiatric Problems, Family Respiratory Disorders, Family Cardiac Disorders, Family Gastrointestinal Problems, Family Cancer and Family Surgery Surgical History SURGICAL: Positive Tubal Ligation Social History SMOKING STATUS: Current every day smoker ED Exam Narrative Physical exam: Refer to HPI above Course Course Course Narrative: CXR is ordered for determining the etiology of shortness of breath. Quality Measures none Orders Category Date Time Status CT head/brain wo con Stat Exams 01/22/25 18:[address] soft tissue neck wo con Stat Exams 01/22/25 18:55 Completed XR chest 1V portable Stat Exams 01/22/25 18:56 Completed Alcohol, Blood Medical Stat Lab 01/22/25 19:11 Completed Amylase Stat Lab 01/22/25 19:11 Completed BMP [Basic Metabolic Panel] Stat Lab 01/22/25 19:11 Completed BNP [B-Type Natriuretic Peptide] Stat Lab 01/22/25 19:11 Completed CBC Stat Lab 01/22/25 19:11 Completed Free T4 (Free Thyroxine) Stat Lab 01/22/25 19:11 Completed Lipase Stat Lab 01/22/25 19:11 Completed Liver Panel Stat Lab 01/22/25 19:11 Completed Magnesium Stat Lab 01/22/25 19:11 Completed PT [Prothrombin Time with INR] Stat Lab 01/22/25 19:11 Completed TSH [Thyroid Stimulating Hormone] Stat Lab 01/22/25 19:11 Completed UA, C/S IF [Urinalysis, C/S if Indicated] Stat Lab 01/22/25 19:52 Completed Amoxicillin/Pot Clav 875 [Augmentin 875] Med 01/22/25 21:12 Discontinued 1 tab PO X1 ONE Metoprolol Tartrate [Lopressor] Med 01/22/25 18:53 Discontinued 50 mg PO X1 ONE cloNIDine HCL [Catapres] Med 01/22/25 18:53 Discontinued 0.3 mg PO X1 ONE Vital Signs Vital signs: Vital Signs Temperature 98.3 F 01/22/25 18:38 Pulse Rate 115 H 01/22/25 18:38 Respiratory Rate 19 01/22/25 18:38 Blood Pressure 208/141 H 01/22/25 18:38 Pulse Oximetry (%) 97 01/22/25 18:38 Oxygen Delivery Method Room Air 01/22/25 18:38 Shortness of Breath / Dyspnea MDM Narrative MDM Narrative:: Scribe Attestation: I, Crys Hernandez, am scribing for and in the presence of Dr. Rees. Provider Notation: Although this document has been carefully reviewed, there may still be some phonetic and other typographical errors.? These errors are purely grammatical due to imperfections in the software program and should not be construed in any way to? compromise the substance of the patient's medical care during this visit. 49 y/o female with Hx of HTN, CHF and Factor V clotting disorder presents with throat swelling x few hours. She was sent to ED by PCP at [facility] for further evaluation. Patient was seen in ED last night for BLE swelling and SOB and was prescribed a water pill. Denies fever and sore throat. She is able to swallow without difficulty. She takes Eliquis and Lisinopril. No other complaints. Patient data External records reviewed:: [facility] previous records (Reviewed prior ED records from 01/21/25. Patient was seen for Bronchospasm.) Clinical information provided by:: patient Social determinants that could affect healthcare access:: none Patient has the following chronic illnesses:: Congestive Heart Failure, Aneurysm, and Hypertension, Asthma, Factor 5 How is presenting disease/condition affected by chronic disease/condition?: exacerbated by Evaluation data The following diagnostics were reviewed and interpreted by me:: lab results and radiology exam(s) Lab and/or radiology exams considered but not ordered:: None Interpretation Summary: I reviewed all diagnostic test results: My interpretation of the chest x-ray is increased vascular congestion. My review of the Head CT report is: NAD. My review of the Soft Tissue Neck CT report is: Enlarged submandibular glands consistent with sialadenitis. Sclerotic lesion C7 left vertebral body pedicle and lamina worrisome for osteoblastic metastasis. Blood and urine test remarkable for BNP 725. Medications / Prescriptions Medications or Prescriptions considered but not ordered:: None Medication administrations:: Medication Administration History Discontinued Medications Amoxicillin/Clavulanate Potassium (Amoxicillin/Pot Clav 875 Tablet) 1 tab PO X1 ONE Stop: 01/22/25 21:13 Last Admin: 01/22/25 21:21 Dose: 1 tab Documented By: VG Clonidine (Clonidine Hcl 0.1 Mg Tablet) 0.3 mg PO X1 ONE Stop: 01/22/25 18:54 Last Admin: 01/22/25 20:21 Dose: 0.3 mg Documented By: HENRI Metoprolol Tartrate (Metoprolol Tartrate 25 Mg Tablet) 50 mg PO X1 ONE Stop: 01/22/25 18:54 Last Admin: 01/22/25 20:19 Dose: 50 mg Documented By: HENRI Catapres, Lopressor, and Augmentin. Consultations Consultation(s) initiated? (list below): No Diagnosis Shortness of Breath Differential Diagnosis: acute exacerbation of chronic obstructive airways disease, congestive heart failure, community acquired pneumonia, asthma with exacerbation, pulmonary embolism and other (Goiter, Thyroiditis, Thyroid Nodules) Most likely diagnosis given after review of the tests above:: Sialadenitis and CHF. Admission Indicated Admission indicated?: not indicated Explain why admission is indicated or not indicated:: With no severe illness and significant improvement, there was no indication for admission. Admission Request Was there a request for admission?: No Disposition Plan Disposition Plan: Discharge Discharge Attestation Discharge Attestation: The patient and all family members were given an opportunity to ask questions and understood the discharge instructions. Discharge instructions specifically effects, indications for sooner follow up or return to the emergency department, and the expected course of current diagnosis. Patient condition: Stable Discharge Plan Plan Patient Disposition: HOME (Self Care) Prescriptions/Referrals Prescriptions/Med Rec: New prednisone 50 mg tablet 50 mg PO QDAY Qty: 3 0RF furosemide [Lasix] 20 mg tablet 20 mg PO QDAY Qty: 30 0RF amoxicillin-pot clavulanate 875-125 mg tablet 1 tab PO BID Qty: 20 0RF No Action metaxalone 800 mg tablet 800 mg PO TID PRN (Reason: muscle pain) Qty: 30 0RF hydrochlorothiazide 25 mg tablet 25 mg PO QDAY MDD 25 mg Qty: 30 5RF tramadol 50 mg tablet 50 mg PO TID PRN (Reason: pain) Qty: 90 0RF varenicline tartrate [Chantix Continuing Month Box] 1 mg tablet 1 mg PO BID MDD 2 mg Qty: 56 4RF nicotine 21-14-7 mg/24 hr patch, TD daily, sequential 1 patch transdermal QDAY Qty: 56 0RF nicotine (polacrilex) 4 mg lozenge 4 mg buccal Q4H MDD 40 PRN (Reason: nicotine cravings) Qty: 108 2RF Rx Instructions: Take 1 lozenge every 2-3 hours as needed for cravings Ozempic 2 mg/dose (8 mg/3 mL) pen injector 2 mg subcut QWEEK Qty: 3 2RF albuterol sulfate 90 mcg/actuation HFA aerosol inhaler 2 puff inhalation Q6H PRN (Reason: shortness of breath or wheezing) 30 Days Qty: 8.5 1RF lisinopril 40 mg tablet 40 mg PO QDAY MDD 40 mg Qty: 30 5RF Eliquis 5 mg tablet 5 mg PO BID MDD 10 mg Qty: 60 3RF Ozempic 2 mg/dose (8 mg/3 mL) pen injector 2 mg subcut QWEEK Qty: 3 2RF albuterol sulfate [Ventolin HFA] 90 mcg/actuation HFA aerosol inhaler 1 inh inhalation QID Qty: 8.5 0RF amlodipine [Norvasc] 10 mg tablet 10 mg PO QDAY Qty: 30 0RF Qvar RediHaler 40 mcg/actuation HFA aerosol breath activated 1 inh inhalation BID Qty: 10.6 0RF Rx Instructions: administer with spacer albuterol sulfate 2.5 mg /3 mL (0.083 %) solution for nebulization 2.5 mg inhalation Q4H PRN (Reason: bronchospasm) Qty: 180 0RF Proair Digihaler 90 mcg/actuation aero powdr breath act w/sensor 2 inh inhalation QID Qty: 1 0RF Referrals: Johnnie Hawley MD [Primary Care Provider] - In 1 week Problem List Clinical Impression: Sialadenitis Patient/Caregiver Discharge Instructions Discharge Activity: activity as tolerated Education Materials: ED CHF Left Side, ED Salivary Gland Infection Additional Instructions: Discharge Instructions from Dr. Rees printed for you: 1. After evaluation, your neck swelling is due to infection/inflammation of your salivary glands. Take Augmentin and prednisone for the infection/inflammation. 2. For congestive heart failure, fluid in your lungs, take Lasix daily as prescribed. Elevate head of bed and elevate your feet/ankles above your waist level when resting or sitting or sleeping. Don't go out of your way to drink extra fluid, only drink when you are thirsty. Lasix can lower potassium level, eat a banana daily. 3. See a private doctor outside the ER on 01/24/25 for recheck and further care. This is extremely important because you will need more care not available here in the ER. Ask to help until you are completely better. Ask for help with better management of your high BP. Ask to review all test results and official radiology reports, to make sure you receive all necessary follow-ups and monitoring. Including lesions seen on cervical vertebrae #7, you will need MRI imaging not available here in the ER currently. To make sure there is no serious underlying heart condition, ask to help you get more tests for your heart that cannot be done here in the ER. Such as Holter Monitor (cardiac monitoring at home from a day to even a month), heart stress test (on treadmill or with medication), echocardiogram (imaging of your heart structures), heart catherization (checking for blockages in your heart arteries), and a referral to see a Manager Event. 4. Seek immediate medical care with worsening or with any concerns. Print Language: Divehi Stand Alone Forms: Mary Jane Award Info., Patient Portal Info Letter
--- NOTE | 2025-01-22 18:55 | XR_ITS ---
Examination: CT brain head without contrast. 2-D sagittal coronal reconstructions Date and time of exam:January 22, 2025 1929 hours INDICATIONS: High blood pressure with headache today CTDI: vol (mGy):51 DLP: (mGycm):1015 Technique: Multiple CT axial sections of the brain have been obtained, 5 mm slice thickness. Contrast has not been administered. 2-D sagittal, coronal reconstructions have been obtained Low dose protocols were performed. One or more of the following dose reduction techniques were used; automated exposure control, adjustment of the mA and/or KV according to patient size, use of iterative reconstruction technique. Findings: No significant ventricular enlargement. Intra-axial or extra-axial hemorrhage density is not seen. No mass effect or midline shift Basal cisterns are not remarkable. Fourth ventricle is midline. Cranial vault intact. Impression: Negative for acute hemorrhage, mass effect or midline shift
--- NOTE | 2025-01-22 18:55 | XR_ITS ---
Examination: CT soft tissue neck, without intravenous contrast. 2-D coronal reconstructions. 2-D sagittal reconstructions. Date and time of exam :January 22, 2025 1924 hours INDICATIONS: Redness swelling and pain involving the anterior neck today. CTDI: vol (mGy):14 DLP: (mGycm):323 Technique: 1.25 mm axial sections of the neck of the obtained. Coronal and sagittal reconstructions have been obtained. Low dose protocols were performed. One or more of the following dose reduction techniques were used; automated exposure control, adjustment of the mA and/or KV according to patient size, use of iterative reconstruction technique. Findings: Images do not include the anterior neck Both submandibular glands appear enlarged with edema No nasopharyngeal or oropharyngeal mass Numerous carotid triangle lymph nodes The larynx appears normal Dense abnormal sclerosis involving the left C7 vertebral body pedicle and lamina, axial image 118 IMPRESSION: Enlarged submandibular glands consistent with sialadenitis, clinical correlation advised Sclerotic lesion C7 left vertebral body pedicle and lamina worrisome for osteoblastic metastasis Recommend elective MRI cervical spine follow up pre and postcontrast, consider whole-body nuclear medicine bone scan follow-up
--- NOTE | 2025-01-22 18:56 | XR_ITS ---
Examination: AP chest single view Technique one AP portable upright chest single view Date and time: January 22, 2025 1934 hours Comparison January 21, 2025 INDICATIONS: Throat swelling and shortness of breath FINDINGS: Mild enlargement cardiac contour Moderate vascular congestion Early pneumonia at the lung bases Small right pleural effusion IMPRESSION: Moderate vascular congestion Early pneumonia at the lung bases
[2025-01-22 19:23] LABS: Basophils # (Auto) 0.1 Thou/mm3 (0.0-0.2); Basophils % (Auto) 1 % (0-2.5); Eosinophils # (Auto) 0.1 Thou/mm3 (0.0-0.5); Eosinophils % (Auto) 1 % (0-10); Hematocrit 41.6 % (36.0-46.0); Hemoglobin 14.1 g/dL (12.0-16.0); Immature Granulocytes % (Auto) 0 % (0-0); Immature Granulocytes Auto 0.03 Thou/mm3 (0.00-0.00); Lymphocytes # (Auto) 1.7 Thou/mm3 (1.0-4.8); Lymphocytes % (Auto) 16 % (10-50); Mean Corpuscular HGB Conc 33.9 g/dl (31.0-37.0); Mean Corpuscular Hemoglobin 29.4 pg (25.0-35.0); Mean Corpuscular Volume 87 fL (80-100); Monocytes # (Auto) 0.6 Thou/mm3 (0.0-0.8); Monocytes % (Auto) 6 % (0-12); Neutrophils # (Auto) 7.9 Thou/mm3 (1.8-7.7); Neutrophils % (Auto) 75 % (37-80); Nucleated Red Blood Cell % 0 /100 WBC (0); Platelet Count 206 Thou/mm3 (140-440); RDW Standard Deviation 43.6 fL (36.4-46.3); White Blood Count 10.4 Thou/mm3 (3.6-11.0)
[2025-01-22 19:44] LABS: INR 1.1 (0.9-1.3); Prothrombin Time 12.1 Seconds (9.0-12.2)
[2025-01-22 20:07] LABS: Alanine Aminotransferase 37 U/L (10-49); Albumin, Serum 4.1 gm/dL (3.5-5.0); Alcohol, Blood Medical < 3.0 mg/dL (0-10.0); Alkaline Phosphatase 122 U/L (46-116); Amylase 72 U/L (30-118); Anion Gap 7 (7-16); Aspartate Amino Transferase 20 U/L (0-34); B-Type Natriuretic Peptide 725 pg/mL (0-100); BUN/Creatinine Ratio 10 Ratio (12-20); Bilirubin,Direct 0.4 mg/dL (0.0-0.3); Bilirubin,Total 1.2 mg/dL (0.3-1.2); Blood Urea Nitrogen 12 mg/dL (9-23); Calcium 9.3 mg/dL (8.3-10.6); Carbon Dioxide 28.4 mMol/L (20.0-31.0); Chloride 111 mMol/L (98-107); Creatinine (Component) 1.2 mg/dL (0.6-1.3); Estimated Creatinine Clearance 77.5 mL/min (>60); Free T4 (Free Thyroxine) 1.31 ng/dL (0.89-1.76); Glucose 109 mg/dL (74-106); Lipase 40 U/L (12-53); Magnesium 2.2 mg/dL (1.6-2.6); Osmolality,Calculated 291 (275-295); Potassium 3.8 mMol/L (3.4-5.1); Sodium 146 mMol/L (136-145); Thyroid Stimulating Hormone 0.59 uIU/mL (0.55-4.78); Total Protein 6.3 gm/dL (5.7-8.2); eGFR 56 See Note
[2025-01-22 20:19] VITALS: BP 194/121; PULSE 102
[2025-01-22] MEDS: METOPROLOL TARTRATE 25 MG TABLET 50 MG PO (20:19)
[2025-01-22 20:21] VITALS: BP 194/121; PULSE 102
[2025-01-22] MEDS: cloNIDine HCL 0.1 MG TABLET 0.3 MG PO (20:21)
[2025-01-22 20:57] LABS: Collection Type, Urine Clean Catch
[2025-01-22 21:14] LABS: Bilirubin,Urine Negative (Negative); Blood,Urine Negative (Negative); Clarity,Urine Clear (Clear/Hazy); Color,Urine Lt-Yellow (Lt Yel-Yel); Culture Indicated,Urine Not Indicated; Glucose, Urine Negative (Negative); Ketones,Urine Negative (Negative); Leukocyte Esterase,Urine Negative (Negative); Nitrite,Urine Negative (Negative); PH,Urine 6.5 (5.0-7.0); Protein,Urine 1+ (Neg - Trace); RBC,Urine < 1 /hpf (0-3); Specific Gravity,Urine 1.007 (1.001-1.035); Squamous Epithelial Cell,Urine < 1 /hpf (0-5); Urobilinogen,Urine Negative mg/dL (0.0-1.0); WBC,Urine < 1 /hpf (0-5)
[2025-01-22] MEDS: AMOXICILLIN/POT CLAV 875 TABLET 1 TAB PO (21:21)
== END 2025-01-22 21:38 | disposition home or self-care (01) ==
PROVIDERS: Emergency Provider Emergency Medicine; PCP Family Medicine
DX: K11.20 Sialoadenitis, unspecified (principal); R51.9 Headache, unspecified; J18.9 Pneumonia, unspecified organism; I11.0 Hypertensive heart disease with heart failure; I50.9 Heart failure, unspecified; D68.2 Hereditary deficiency of other clotting factors
CPT/HCPCS: 36415; 70450; 70490; 71045; 80048; 80076; 80320; 81001; 82150; 83690; 83735; 83880; 84439; 84443; 85025; 85610; 99284; A9270; G0480

== ENCOUNTER 2025-01-24 09:24 | Outpatient (AMB) | payer BC, SELFPAY ==
[2025-01-24 09:53] VITALS: BP 161/97; PULSE 90; RESP 18; TEMP 36.8; O2SAT 98; BMI 30.9
--- NOTE | 2025-01-24 09:53 | PD.RESCLINIC ---
Vital Signs 01/24/25 09:53 Height 1.83 m Height Method Stated Weight 103.419 kg Weight Measurement Method Standing Scale BMI 30.9 BP 161/97 H Blood Pressure Source Automatic Cuff Blood Pressure Location Right Upper Arm Position Sitting Respiration 18 Pulse 90 Pulse Source Monitor Temp 98.2 F Temp Source Temporal Artery Scan Pulse Oximetry (%) 98 Oxygen Delivery Method Room Air Allergies/Meds Allergies & Medications Allergies morphine Allergy (Severe, Verified 01/24/25 09:54) ITCHING/ALL OVER Medication Reconciliation metaxalone 800 mg tablet 800 mg PO TID PRN muscle pain #30 tabs 01/29/24 [Rx Confirmed 01/24/25] albuterol sulfate 90 mcg/actuation aerosol inhaler (Ventolin HFA) 1 inh inhalation QID #8.5 grams 03/28/24 [Rx Confirmed 01/24/25] hydrochlorothiazide 25 mg tablet 25 mg PO QDAY HTN #30 tabs 04/08/24 [Rx Confirmed 01/24/25] tramadol 50 mg tablet 50 mg PO TID PRN pain #90 tabs 05/13/24 [Rx Confirmed 01/24/25] varenicline tartrate 1 mg tablet (Chantix Continuing Month Box) 1 mg PO BID #56 tabs 05/13/24 [Rx Confirmed 01/24/25] semaglutide 2 mg/dose (8 mg/3 mL) subcutaneous pen injector (Ozempic) 2 mg (0.75 mL) subcut QWEEK #3 mL 07/29/24 [Rx Confirmed 01/24/25] nicotine (polacrilex) 4 mg buccal lozenge 4 mg buccal Q4H PRN nicotine cravings #108 ea 08/12/24 [Rx Confirmed 01/24/25] nicotine 21mg/24hr-14mg/24hr-7mg/24hr daily transderm patches,sequentl 1 patch transdermal QDAY #56 patches 08/12/24 [Rx Confirmed 01/24/25] albuterol sulfate 2.5 mg/3 mL (0.083 %) solution for nebulization 2.5 mg (3 mL) inhalation Q4H PRN bronchospasm #180 mL 01/21/25 [Rx Confirmed 01/24/25] albuterol sulfate 90 mcg/actuation aerosol inhaler 2 puff inhalation Q6H PRN shortness of breath or wheezing 30 days #8.5 grams 01/21/25 [Rx Confirmed 01/24/25] albuterol sulfate 90 mcg/actuation breath activated powder inhaler,sensor (Proair Digihaler) 2 inh inhalation QID #1 ea 01/21/25 [Rx Confirmed 01/24/25] apixaban 5 mg tablet (Eliquis) 5 mg PO BID Pulmonary embolus #60 tabs 01/21/25 [Rx Confirmed 01/24/25] beclomethasone dipropionate 40 mcg/actuation HFA breath activated aerosol (Qvar RediHaler) 1 inh inhalation BID #10.6 grams 01/21/25 [Rx Confirmed 01/24/25] lisinopril 40 mg tablet 40 mg PO QDAY HTN #30 tabs 01/21/25 [Rx Confirmed 01/24/25] semaglutide 2 mg/dose (8 mg/3 mL) subcutaneous pen injector (Ozempic) 2 mg (0.75 mL) subcut QWEEK #3 mL 01/21/25 [Rx Confirmed 01/24/25] amoxicillin 875 mg-potassium clavulanate 125 mg tablet 1 tab PO BID #20 tabs 01/22/25 [Rx Confirmed 01/24/25] furosemide 20 mg tablet (Lasix) 20 mg PO QDAY #30 tabs 01/22/25 [Rx Confirmed 01/24/25] prednisone 50 mg tablet 50 mg PO QDAY #3 tabs 01/22/25 [Rx Confirmed 01/24/25] hydralazine 25 mg tablet 25 mg PO TID 1 month #90 tabs 01/24/25 [Rx] MA Intake Visit Data Collection New Patient or Established: Established Patient (seen at [facility] within 3 years) Seen by Clinical Staff ONLY (RN/MA): No Pain Present Currently: No Pain scale:: 0 Pain Scale Used: Blanco-Boogie/Numerical Spray Drier Required: No PCP or OBGYN visit in last 3 months: No Hx Now: No Do You Feel Safe at Home: Yes Authorities Contacted: N/A Smoking Status Smoking Status: Current every day smoker Cessation Counseling Provided: LETITIA was advised that quitting smoking is the single most important factor to protect the health of themselves and their family. Discussed the benefits of quitting smoking with patient. Encouraged patient to quit smoking and provided Cessation assistance materials and resources. Tobacco Use: Cigarette Years smoked: 33 Are you interested in quitting?: Yes Would you like additional Smoking Cessation Counseling?: No Immunization / Flu Flu Vaccine in the Last 12 Months: No Flu Vaccine Exclusion Criteria: No Exclusion Criteria Past Medical History Past Medical History CARDIAC: Positive Cardiac Disorders (htn, chf), Aneurysm (self) and Hypertension; Negative Congestive Heart Failure RESPIRATORY: Positive Asthma; Negative Chronic Obstructive Pulmonary Disease (COPD) GENITOURINARY: Negative Renal Disease REPRODUCTIVE: Positive Previous Pregnancies (9 preganancies) ENDOCRINE: Negative Diabetes Mellitus Type 1 or Diabetes Mellitus Type 2 HEMATOLOGIC: Positive Blood Disorders and Clotting Problems (factor 5); Negative Sickle Cell Disease OTHER HISTORY: Negative Autoimmune Disease Family History FAMILY HISTORY: Positive Family Psychiatric Problems, Family Respiratory Disorders, Family Cardiac Disorders, Family Gastrointestinal Problems, Family Cancer and Family Surgery; Negative Family Anesthesia Reaction Surgical History SURGICAL: Positive Tubal Ligation Social History SMOKING STATUS: Smoking status: Current every day smoker PACK YEARS: Pack-Years: 33 ALCOHOL: Alcohol Intake: Never ALCOHOL FREQUENCY: Alcohol Intake Frequency: A Few Times a Month HOUSING: Housing: House LIVES WITH: Lives With: Alone Patient Portal Questionaires PHQ-9 PHQ-2 Over the last 2 weeks, how often have you been bothered by any of the following problems? 1. Little interest or pleasure in doing things: not at all PHQ-9 8. Moving or speaking so slowly that other people could have noticed? - Or the opposite - being so fidgety or restless that you have been moving around a lot more than usual: not at all Source: Developed by Drs. Khoa Toledo, Mariam Metcalf, Vj Crandall and colleagues, with an educational carina from [employer]. Social History Living Situation History Housing: House Tobacco History Smoking Status: Current every day smoker Packs per Day: 2 Pack-Years: 33 Alcohol History Alcohol Intake: Never Alcohol Intake Frequency: A Few Times a Month Domestic Abuse History Do You Feel Safe at Home: Yes Review of Systems Report any current symptoms Only answer those that you have currently: Past Medical History Past Medical History Have you ever been diagnosed with any of the following: Cardiology Problems Aneurysm: Yes (self) Congestive Heart Failure: No Hypertension: Yes Respiratory Problems Chronic Obstructive Pulmonary Disease (COPD): No Asthma: Yes Genital/Urinary Problems Renal Disease: No Reproductive Problems Previous Pregnancies: Yes (9 preganancies) Endocrine Problems Diabetes Mellitus Type 1: No Diabetes Mellitus Type 2: No Blood Problems Sickle Cell Disease: No Clotting Problems: Yes (factor 5) Other Problems Autoimmune Disease: No History of Present Illness HPI Narrative 08/12/2024 49-year-old female with past medical history of factor V Leyden mutation, HTN, aneurysm and [id number] smoking history presents as walk-in to clinic for acute dyspnea. Patient is concerned she has pneumonia or blood clots in her lungs. Patient endorses paroxysmal nocturnal dyspnea, orthopnea which improves when sitting up or sleeping on her left side, and dyspnea on exertion (gets SOB when walking to daughter's house, 4 houses away). Dyspnea has been going on for last 2 weeks, and is apparent during conversation with patient. Patient endorses having flulike symptoms approximately 1 week ago, and endorses fever, chills, palpitations, pleuritic chest pain, N/V/D/abd pain, and LUTS which have all resolved however productive cough of yellow sputum remains. Dyspnea has not improved with her inhaler which she uses 2-4 times per day. Additionally, patient mentions she has not taken Eliquis in approximately 1 month. 11/03/24 49 y/o female patient with significant medical history for HTN, factor V Leyden mutation and current smoker came to clinic for lab results and medication refill. Patient was last seen in clinic on 08/12/24 for chest pain and SOB. Since last visit, patient is doing well, does not complain of chest pain or SOB. Patient continues to smoke, but is willing to quit. She was prescribed nicotine patch but patient has not started it yet. Labs were completed in [facility], reviewed lab with patient. CBC and CMP indicated mild elevation of HgB, Hct, creatinine (1.19). Most likely due to concentration/dehydration. Patient admits not drinking enough water but does drink soda. Educated and encouraged patient with smoking cessation. Refilled Ozempic for patient, she has approximetly lost 30 lbs since starting medicaiton. Will follow up with patient in x2 months. 01/24/25 49-year-old female with past medical history of factor V Leyden mutation, HTN, aneurysm and [id number] smoking history presents to clinic for ED follow up. Patient was seen 01/21/25 for dyspnea and again 01/22/25 for submandibular gland swelling. Paitent found to have significantly elevated BNP and uncontrolled HTN both times. Was prescribed amlodipine, Lasix, course of Augmentin and prednisone. Also had soft tissue neck CT which showed sclerotic lesion C7 left vertebral body pedicle and lamina. 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 Reports dyspnea on exertion, orthopnea. Ordered new echo, stopped amlodipine, started hydralazine, referred to scrap preparation supervisor, will get MRI cervical spine. Follow up in 2 weeks. Review of Systems Review of Systems Systems Reviewed: All systems reviewed, normal except as documented Objective/Exam Narrative Physical exam: PE: Gen: Well-developed and well-nourished. HEENT: NCAT, PERRLA, EOMI, MMM, anicteric conjunctivae. Bilateral swelling submandibular glands, minimally tender. CVS: normal S1 and S2. RRR. Systolic murmur at apex Resp: CTA B/L. No rhonchi, rales, crackles or wheezing. Abd: soft, non-tender, non-distended. MSK: Good ROM in BUE & BLE. 2+ pitting edema BLE. Bilateral tortuous veins. Neuro: CN II-XII grossly intact. Strength 5/5 in BUE & BLE. Alert and oriented x3. Psych: appropriate mood and affect. Assessment & Plan Diagnosis / Problem List (1) Elevated brain natriuretic peptide (BNP) level: Status: Acute Assessment & Plan: Patient presented as follow-up from hospital. While hospital patient had significant elevated BNP greater than 700. Patient also complaining of orthopnea, dyspnea on exertion. Has bilateral lower extremity edema. Last echo was in 2022. Patient reports having leaky valve, noted to have heart murmur consistent with mitral regurgitation. Has never seen a scrap preparation supervisor. Plan: - Lasix 20 mg daily - Hydralazine 25 mg 3 times daily - Cardiology referral to Dr. Chandra - Echo ordered - Follow-up in 2 weeks (2) Hypertension: Status: Chronic Qualifiers: Hypertension type: primary hypertension Qualified Code(s): I10 - Essential (primary) hypertension Assessment & Plan: Patient has history of hypertension, uncontrolled despite treatment with lisinopril and hydrochlorothiazide. Home BP typically greater than 160 systolic. Plan: - Lisinopril 40 mg daily - Hydrochlorothiazide 25 mg daily - Hydralazine 25 mg 3 times daily (3) Abnormal CT of spine: Status: Acute Assessment & Plan: Patient recently seen in ED where she received CT soft tissue neck to evaluate swelling. Was found to have sclerotic lesion of C7 left vertebral body pedicle and lamina. Requires further imaging. Plan: - MRI cervical spine with and without contrast to rule out malignant nature of lesion (recommended by radiologist) - Follow-up in 2 weeks Plan Plan of care discussed with attending Dr. Aggarwal. Gregorio Lara MD PGY-1 Orders: Orders CA echo doppler complete 01/24/25 R01.1 - Cardiac murmur, unspecified, R79.89 - Other specified abnormal findings of blood chemistry MR cervical spine wo/w con 01/24/25 R93.7 - Abnormal findings on diagnostic imaging of other parts of musculoskeletal system Referrals Cardiology R01.1 - Cardiac murmur, unspecified Additional Assessment Attending note: I, Baron Aggarwal MD, attest that I was physically present for the olivares portions of the service and evaluated the patient with the resident and I reviewed and discussed the case with the resident and agree with the resident's findings and plans of care as documented above. Baron Aggarwal MD Physician Billing Established Patient Established Patient: E/M Level 3-CPT 59316 Office Procedures [facility] Level of Care Nursing/Assessment Patient Status: Established Patient Nursing Assessment/Reassessment: Medication Reconciliation, Update PMH in EMR and Vital Signs Coordination of Care: Complex Care and Chronic Disease 1-5, Consent,records obtained, informed consent, Education Simp Pt/Fam and Staff clarify orders Established Patient Charge Established Patient Point Assignment: 85 Established Patient Point Charge: EP Level 3 (80-115)
== END 2025-01-24 11:05 | disposition home or self-care (01) ==
PROVIDERS: Supervising Provider Internal Medicine
DX: R06.01 Orthopnea (principal); I10 Essential (primary) hypertension; F17.200 Nicotine dependence, unspecified, uncomplicated; R60.0 Localized edema; R01.1 Cardiac murmur, unspecified; R93.7 Abnormal findings on diagnostic imaging of other parts of musculoskeletal system; R79.89 Other specified abnormal findings of blood chemistry
CPT/HCPCS: 99213; G0463

== ENCOUNTER → 2025-02-15 | Outpatient (CLI) | payer BC, SELFPAY ==
--- NOTE | 2025-02-15 14:30 | ECHO_ITS ---
Transthoracic Echo Report Ht (in): 72 Wt (lb): 240 Exam Location: Echo Lab Status: Preadmit Admissions Recruiter: Una Stubbs Indications: Procedure Performed: BP: / HR: Technical Quality: Adequate MEASUREMENTS (Male / Female) Normal Values 2D ECHO LV Diastolic Diameter PLAX 5.3 cm 4.2 - 5.9 / 3.9 - 5.3 cm LV Systolic Diameter PLAX 3.7 cm IVS Diastolic Thickness 1.1 cm 0.6 - 1.0 / 0.6 - 0.9 cm LVPW Diastolic Thickness 1.1 cm 0.6 - 1.0 / 0.6 - 0.9 cm LV Relative Wall Thickness 0.4 LVOT Diameter 2.2 cm LA Volume Index 53.7 cm?/m? 16 - 28 cm?/m? M-MODE AV Cusp Separation MM 1.7 cm DOPPLER AV Peak Velocity 105.0 cm/s AV Peak Gradient 4.4 mmHg AI Peak Velocity 342.0 cm/s AI Peak Gradient 46.8 mmHg AI Pressure Half Time 735.0 ms LVOT Peak Velocity 106.0 cm/s LVOT Peak Gradient 4.5 mmHg AV Area Cont Eq pk 3.8 cm? MV Peak Velocity 135.0 cm/s MV Peak Gradient 7.3 mmHg MV Mean Velocity 70.9 cm/s MV Mean Gradient 3.0 mmHg MV Area PHT 3.1 cm? MR Peak Velocity 410.0 cm/s MR Peak Gradient 67.2 mmHg MR ERO PISA 2.3 cm? Mitral E Point Velocity 131.0 cm/s Mitral A Point Velocity 49.0 cm/s Mitral E to A Ratio 2.7 TR Peak Velocity 243.0 cm/s TR Peak Gradient 23.6 mmHg PV Peak Velocity 95.0 cm/s PV Peak Gradient 3.6 mmHg FINDINGS Left Ventricle The left ventricular cavity size is mildly increased. The left ventricular wall thickness is mildly increased. The ejection fraction is visually estimated at 55 %. There is grade III diastolic dysfunction of the left ventricle (restrictive filling pattern). Right Ventricle Moderate right ventricle enlargement noted. The estimated right ventricular systolic pressure, 23mmHg. RAP 15mmHg. Left Atrium The left atrial cavity size is severely increased. Right Atrium The right atrial cavity size is moderately increased. Atrial Septum The interatrial septum appears normal with no evidence of a shunt. Aorta The aorta is normal by two-dimensional, color flow and Doppler interrogation. Mitral Valve The posterior mitral valve prolapse is moderately prolapsed. Severe mitral regurgitation with pulmonary vein reversal per Doppler. Aortic Valve The aortic valve is trileaflet and normal by two-dimensional, color flow and Doppler interrogation. There is mild aortic valve regurgitation. Tricuspid Valve The tricuspid valve is normal by two-dimensional, color flow and Doppler interrogation. There is mild tricuspid regurgitation. Pulmonic Valve The pulmonic valve is not well visualized. There is no significant pulmonic valve regurgitation. Vessels The pulmonary artery appears normal. The inferior vena cava is dilated without collapse. Pericardium The pericardium is normal by two-dimensional imaging. There is no significant pericardial effusion. CONCLUSIONS Indications: Cardiac Murmur Significant posterior mitral valve prolapse with eccentric anteriorly directed severe MR. Coanda effect noted. Pulmonary vein flow reversal. Recommend SHERIF for further evaluation. Mildly dilated LV with normal LV function with an EF of 55 to 60%. Mild LVH. Diastolic dysfunction cannot be measured because of the severe MR. Mild RV dilatation with normal RV systolic function. Mildly elevated RVSP at 30 to 35 mmHg. Mild TR and mild AI. Severe LA dilatation and the mild RA dilatation. Mildly dilated IVC. No pericardial effusion. Jayden Hernández (Electronically Signed) Final Date: 15 February 2025 18:54
== END | disposition home or self-care (01) ==
LOC: SDIM 14:00
DX: R01.1 Cardiac murmur, unspecified (principal); I34.1 Nonrheumatic mitral (valve) prolapse; I50.30 Unspecified diastolic (congestive) heart failure; I08.2 Rheumatic disorders of both aortic and tricuspid valves
CPT/HCPCS: 93306

== ENCOUNTER 2025-02-23 14:59 | Outpatient (AMB) | payer BC, SELFPAY ==
--- NOTE | 2025-02-23 15:16 | PD.RESCLINIC ---
Allergies/Meds Allergies & Medications Allergies morphine Allergy (Severe, Verified 02/25/25 16:18) ITCHING/ALL OVER Medication Reconciliation metaxalone 800 mg tablet 800 mg PO TID PRN muscle pain #30 tabs 01/29/24 [Rx Confirmed 02/25/25] albuterol sulfate 90 mcg/actuation aerosol inhaler (Ventolin HFA) 1 inh inhalation QID #8.5 grams 03/28/24 [Rx Confirmed 02/25/25] hydrochlorothiazide 25 mg tablet 25 mg PO QDAY HTN #30 tabs 04/08/24 [Rx Confirmed 02/25/25] tramadol 50 mg tablet 50 mg PO TID PRN pain #90 tabs 05/13/24 [Rx Confirmed 02/25/25] varenicline tartrate 1 mg tablet (Chantix Continuing Month Box) 1 mg PO BID #56 tabs 05/13/24 [Rx Confirmed 02/25/25] semaglutide 2 mg/dose (8 mg/3 mL) subcutaneous pen injector (Ozempic) 2 mg (0.75 mL) subcut QWEEK #3 mL 07/29/24 [Rx Confirmed 02/25/25] nicotine (polacrilex) 4 mg buccal lozenge 4 mg buccal Q4H PRN nicotine cravings #108 ea 08/12/24 [Rx Confirmed 02/25/25] nicotine 21mg/24hr-14mg/24hr-7mg/24hr daily transderm patches,sequentl 1 patch transdermal QDAY #56 patches 08/12/24 [Rx Confirmed 02/25/25] albuterol sulfate 2.5 mg/3 mL (0.083 %) solution for nebulization 2.5 mg (3 mL) inhalation Q4H PRN bronchospasm #180 mL 01/21/25 [Rx Confirmed 02/25/25] albuterol sulfate 90 mcg/actuation aerosol inhaler 2 puff inhalation Q6H PRN shortness of breath or wheezing 30 days #8.5 grams 01/21/25 [Rx Confirmed 02/25/25] albuterol sulfate 90 mcg/actuation breath activated powder inhaler,sensor (Proair Digihaler) 2 inh inhalation QID #1 ea 01/21/25 [Rx Confirmed 02/25/25] apixaban 5 mg tablet (Eliquis) 5 mg PO BID Pulmonary embolus #60 tabs 01/21/25 [Rx Confirmed 02/25/25] beclomethasone dipropionate 40 mcg/actuation HFA breath activated aerosol (Qvar RediHaler) 1 inh inhalation BID #10.6 grams 01/21/25 [Rx Confirmed 02/25/25] lisinopril 40 mg tablet 40 mg PO QDAY HTN #30 tabs 01/21/25 [Rx Confirmed 02/25/25] semaglutide 2 mg/dose (8 mg/3 mL) subcutaneous pen injector (Ozempic) 2 mg (0.75 mL) subcut QWEEK #3 mL 01/21/25 [Rx Confirmed 02/25/25] amoxicillin 875 mg-potassium clavulanate 125 mg tablet 1 tab PO BID #20 tabs 01/22/25 [Rx Confirmed 02/25/25] furosemide 20 mg tablet (Lasix) 20 mg PO QDAY #30 tabs 01/22/25 [Rx Confirmed 02/25/25] prednisone 50 mg tablet 50 mg PO QDAY #3 tabs 01/22/25 [Rx Confirmed 02/25/25] MA Intake Visit Data Collection New Patient or Established: Established Patient (seen at [facility] within 3 years) Seen by Clinical Staff ONLY (RN/MA): No Pain Present Currently: No Pain scale:: 0 Pain Scale Used: Blanco-Boogie/Numerical Director Utilization Management Required: No PCP or OBGYN visit in last 3 months: No Hx Now: No Do You Feel Safe at Home: Yes Authorities Contacted: N/A Smoking Status Smoking Status: Current every day smoker Cessation Counseling Provided: LETITIA was advised that quitting smoking is the single most important factor to protect the health of themselves and their family. Discussed the benefits of quitting smoking with patient. Encouraged patient to quit smoking and provided Cessation assistance materials and resources. Tobacco Use: Cigarette Years smoked: 33 Are you interested in quitting?: Yes Would you like additional Smoking Cessation Counseling?: No Immunization / Flu Flu Vaccine in the Last 12 Months: No Flu Vaccine Exclusion Criteria: No Exclusion Criteria Past Medical History Past Medical History CARDIAC: Positive Cardiac Disorders (htn, chf), Aneurysm and Hypertension; Negative Congestive Heart Failure RESPIRATORY: Positive Asthma; Negative Chronic Obstructive Pulmonary Disease (COPD) GENITOURINARY: Negative Renal Disease REPRODUCTIVE: Positive Previous Pregnancies ENDOCRINE: Negative Diabetes Mellitus Type 1 or Diabetes Mellitus Type 2 HEMATOLOGIC: Positive Blood Disorders and Clotting Problems (factor 5); Negative Sickle Cell Disease OTHER HISTORY: Negative Autoimmune Disease Family History FAMILY HISTORY: Positive Family Psychiatric Problems, Family Respiratory Disorders, Family Cardiac Disorders, Family Gastrointestinal Problems, Family Cancer and Family Surgery; Negative Family Anesthesia Reaction Surgical History SURGICAL: Positive Tubal Ligation Social History SMOKING STATUS: Smoking status: Current every day smoker PACK YEARS: Pack-Years: 33 ALCOHOL: Alcohol Intake: Never ALCOHOL FREQUENCY: Alcohol Intake Frequency: A Few Times a Month HOUSING: Housing: House LIVES WITH: Lives With: Alone Patient Portal Questionaires PHQ-9 PHQ-2 Over the last 2 weeks, how often have you been bothered by any of the following problems? 1. Little interest or pleasure in doing things: not at all PHQ-9 8. Moving or speaking so slowly that other people could have noticed? - Or the opposite - being so fidgety or restless that you have been moving around a lot more than usual: not at all Source: Developed by Drs. Khoa Toledo, Mariam Metcalf, Vj Crandall and colleagues, with an educational carina from [employer]. Social History Living Situation History Housing: House Tobacco History Smoking Status: Current every day smoker Packs per Day: 2 Pack-Years: 33 Alcohol History Alcohol Intake: Never Alcohol Intake Frequency: A Few Times a Month Domestic Abuse History Do You Feel Safe at Home: Yes Review of Systems Report any current symptoms Only answer those that you have currently: Past Medical History Past Medical History Have you ever been diagnosed with any of the following: Cardiology Problems Aneurysm: Yes Congestive Heart Failure: No Hypertension: Yes Respiratory Problems Chronic Obstructive Pulmonary Disease (COPD): No Asthma: Yes Genital/Urinary Problems Renal Disease: No Reproductive Problems Previous Pregnancies: Yes Endocrine Problems Diabetes Mellitus Type 1: No Diabetes Mellitus Type 2: No Blood Problems Sickle Cell Disease: No Clotting Problems: Yes (factor 5) Other Problems Autoimmune Disease: No History of Present Illness HPI Narrative 08/12/2024 49-year-old female with past medical history of factor V Leyden mutation, HTN, aneurysm and 56-ghee-myfi smoking history presents as walk-in to clinic for acute dyspnea. Patient is concerned she has pneumonia or blood clots in her lungs. Patient endorses paroxysmal nocturnal dyspnea, orthopnea which improves when sitting up or sleeping on her left side, and dyspnea on exertion (gets SOB when walking to daughter's house, 4 houses away). Dyspnea has been going on for last 2 weeks, and is apparent during conversation with patient. Patient endorses having flulike symptoms approximately 1 week ago, and endorses fever, chills, palpitations, pleuritic chest pain, N/V/D/abd pain, and LUTS which have all resolved however productive cough of yellow sputum remains. Dyspnea has not improved with her inhaler which she uses 2-4 times per day. Additionally, patient mentions she has not taken Eliquis in approximately 1 month. 11/03/24 49 y/o female patient with significant medical history for HTN, factor V Leyden mutation and current smoker came to clinic for lab results and medication refill. Patient was last seen in clinic on 08/12/24 for chest pain and SOB. Since last visit, patient is doing well, does not complain of chest pain or SOB. Patient continues to smoke, but is willing to quit. She was prescribed nicotine patch but patient has not started it yet. Labs were completed in [employer] [facility], reviewed lab with patient. CBC and CMP indicated mild elevation of HgB, Hct, creatinine (1.19). Most likely due to concentration/dehydration. Patient admits not drinking enough water but does drink soda. Educated and encouraged patient with smoking cessation. Refilled Ozempic for patient, she has approximetly lost 30 lbs since starting medicaiton. Will follow up with patient in x2 months. 01/24/25 49-year-old female with past medical history of factor V Leyden mutation, HTN, aneurysm and 37-lcev-fsef smoking history presents to clinic for ED follow up. Patient was seen 01/21/25 for dyspnea and again 01/22/25 for submandibular gland swelling. Patient found to have significantly elevated BNP and uncontrolled HTN both times. Was prescribed amlodipine, Lasix, course of Augmentin and prednisone. Also had soft tissue neck CT which showed sclerotic lesion C7 left vertebral body pedicle and lamina. Patient does not follow public affairs manager, last echo was in 2022. Reports dyspnea on exertion, orthopnea. Ordered new echo, stopped amlodipine, started hydralazine, referred to public affairs manager, will get MRI cervical spine. Follow up in 2 weeks. 02/23/25: 49 y/o F presents to office for follow up. Patient has not had ordered MRI. Echo was taken, showed significant mitral regurgitation with dilated atrium. Based on echo, may have beginnings of pulmonary HTN. Patient reports BP has improved, symptomated dyspnea on exertion and BLE edema improved with hydralazine and lasix. Referred patient to public affairs manager Dr. Hernández who read the echo. Follow up in one month. Review of Systems Review of Systems Systems Reviewed: All systems reviewed, normal except as documented Objective/Exam Narrative Physical exam: PE: Gen: Well-developed and well-nourished. HEENT: NCAT, PERRLA, EOMI, MMM, anicteric conjunctivae. Nontender submandibular glands, smaller than previous exam. CVS: normal S1 and S2. RRR. Systolic murmur at apex Resp: CTA B/L. No rhonchi, rales, crackles or wheezing. Abd: soft, non-tender, non-distended. MSK: Good ROM in BUE & BLE. 1+ pitting edema BLE. Bilateral tortuous veins. Neuro: CN II-XII grossly intact. Strength 5/5 in BUE & BLE. Alert and oriented x3. Psych: appropriate mood and affect. Assessment & Plan Diagnosis / Problem List (1) Mitral regurgitation due to cusp prolapse: Status: Acute Assessment & Plan: Echo ordered due to symptoms of CHF with elevated BNP. Echo showed significant posterior mitral valve prolapse with severe MR. Pulmonary vein flow reversal. Mildly dilated LV with normal LV function with an EF of 55 to 60%. Mildly elevated RVSP at 30 to 35 mmHg. Severe LA dilatation and the mild RA dilatation. Plan: - Lasix 20 mg daily - Hydralazine 25 mg 3 times daily - Cardiology referral to Dr. Hernández - Follow-up in 1 month (2) Hypertension: Status: Inactive Qualifiers: Hypertension type: primary hypertension Qualified Code(s): I10 - Essential (primary) hypertension Assessment & Plan: Patient has history of hypertension, uncontrolled despite treatment with lisinopril and hydrochlorothiazide. Home BP typically greater than 160 systolic. Patient reports improvement in home BP after medication change, but does not check regularly. Plan: - Lisinopril 40 mg daily - Hydrochlorothiazide 25 mg daily - Hydralazine 25 mg 3 times daily (3) Abnormal CT of spine: Status: Acute Assessment & Plan: Patient recently seen in ED where she received CT soft tissue neck to evaluate swelling. Was found to have sclerotic lesion of C7 left vertebral body pedicle and lamina. Requires further imaging. Plan: - MRI cervical spine with and without contrast to rule out malignant nature of lesion (recommended by radiologist) - Follow-up in 1 month Plan Plan of care discussed with attending Dr. Aggarwal. Gregorio Lara MD PGY-1 Orders: Referrals Cardiology I34.0 - Nonrheumatic mitral (valve) insufficiency, I34.1 - Nonrheumatic mitral (valve) prolapse Office Procedures [facility] Level of Care Nursing/Assessment Patient Status: Established Patient Nursing Assessment/Reassessment: Medication Reconciliation and Update PMH in EMR Coordination of Care: Complex Care and Chronic Disease 1-5, Consent,records obtained, informed consent, Education Simp Pt/Fam and Staff clarify orders Established Patient Charge Established Patient Point Assignment: 70 Established Patient Point Charge: EP Level 2 (40-75)
== END 2025-02-23 15:50 | disposition home or self-care (01) ==
LOC: HODAHC 14:59
PROVIDERS: Supervising Provider Internal Medicine
DX: I34.0 Nonrheumatic mitral (valve) insufficiency (principal); I34.1 Nonrheumatic mitral (valve) prolapse; I10 Essential (primary) hypertension; M48.8X2 Other specified spondylopathies, cervical region
CPT/HCPCS: 99212; G0463

== ENCOUNTER → 2025-03-31 | Outpatient (CLI) | payer BC, SELFPAY ==
[2025-03-31 16:31] LABS: Anion Gap 6 (7-16); BUN/Creatinine Ratio 13 Ratio (12-20); Blood Urea Nitrogen 15 mg/dL (9-23); Calcium 10.0 mg/dL (8.3-10.6); Carbon Dioxide 29.9 mMol/L (20.0-31.0); Chloride 106 mMol/L (98-107); Creatinine (Component) 1.2 mg/dL (0.6-1.3); Glucose 90 mg/dL (74-106); Magnesium 1.6 mg/dL (1.6-2.6); Osmolality,Calculated 283 (275-295); Potassium 4.1 mMol/L (3.4-5.1); Sodium 142 mMol/L (136-145); eGFR 56 See Note
== END | disposition home or self-care (01) ==
LOC: COPL 15:39
PROVIDERS: Referring Provider Internal Medicine Cardiovascular Disease; Visit Provider Internal Medicine Cardiovascular Disease
DX: R00.2 Palpitations (principal); R42 Dizziness and giddiness; I10 Essential (primary) hypertension
CPT/HCPCS: 36415; 80048; 83735

== ENCOUNTER 2025-04-05 07:08 | Day surgery (SDC) | payer BC, SELFPAY ==
[2025-04-01 12:31] VITALS: BMI 30.5
--- NOTE | 2025-04-01 12:50 | EKG_ITS ---
[facility] Test Date: 2025-04-04 Pat Name: LETITIA DAWSON Department: Room: - Gender: Female Song And Dance Performer: FRANCIE : 1975 Requested By: Jayden Hernández Order Number: [id number] Reading MD: Jayden Hernández Measurements Intervals [place] Rate: 62 P: 71 [place]: 137 QRS: 70 QRSD: 73 T: 65 QT: 413 QTc: 421 Interpretive Statements SINUS RHYTHM WITH SINUS ARRHYTHMIA SEPTAL MYOCARDIAL INFARCTION , PROBABLY OLD [40+ ms Q WAVE IN V1/V2] Compared to ECG 01/21/2025 12:58:53 Myocardial infarct finding now present Sinus tachycardia no longer present T-wave abnormality no longer present /store/[id number].pdf
[2025-04-04 11:54] LABS: Basophils # (Auto) 0.1 Thou/mm3 (0.0-0.2); Basophils % (Auto) 1 % (0-2.5); Eosinophils # (Auto) 0.2 Thou/mm3 (0.0-0.5); Eosinophils % (Auto) 2 % (0-10); Hematocrit 42.5 % (36.0-46.0); Hemoglobin 13.7 g/dL (12.0-16.0); Immature Granulocytes Auto 0.03 Thou/mm3 (0.00-0.00); Lymphocytes # (Auto) 2.2 Thou/mm3 (1.0-4.8); Lymphocytes % (Auto) 25 % (10-50); Mean Corpuscular HGB Conc 32.2 g/dl (31.0-37.0); Mean Corpuscular Hemoglobin 28.7 pg (25.0-35.0); Mean Corpuscular Volume 89 fL (80-100); Monocytes # (Auto) 0.6 Thou/mm3 (0.0-0.8); Monocytes % (Auto) 6 % (0-12); Neutrophils # (Auto) 6.1 Thou/mm3 (1.8-7.7); Neutrophils % (Auto) 66 % (37-80); Nucleated Red Blood Cell # 0.00 Thou/mm3 (0.00-0.00); Nucleated Red Blood Cell % 0 /100 WBC (0); Platelet Count 185 Thou/mm3 (140-440); RDW Standard Deviation 51.1 fL (36.4-46.3); Red Blood Count 4.77 Miln/mm3 (4.00-5.20); White Blood Count 9.1 Thou/mm3 (3.6-11.0)
[2025-04-04 12:04] LABS: INR 1.0 (0.9-1.3); Partial Thromboplastin Time 27.2 Seconds (22.0-36.0); Prothrombin Time 10.9 Seconds (9.0-12.2)
[2025-04-04 12:11] LABS: Anion Gap 6 (7-16); BUN/Creatinine Ratio 12 Ratio (12-20); Blood Urea Nitrogen 13 mg/dL (9-23); Calcium 9.6 mg/dL (8.3-10.6); Carbon Dioxide 30.2 mMol/L (20.0-31.0); Chloride 106 mMol/L (98-107); Creatinine (Component) 1.1 mg/dL (0.6-1.3); Estimated Creatinine Clearance 84.5 mL/min (>60); Glucose 91 mg/dL (74-106); Osmolality,Calculated 283 (275-295); Potassium 3.9 mMol/L (3.4-5.1); Sodium 142 mMol/L (136-145); eGFR > 60 See Note
[2025-04-05] VITALS (12 sets, daily range): BP systolic 145–211; BP diastolic 91–153; PULSE 73–113; RESP 15–28; TEMP 36.5; O2SAT 92–97
--- NOTE | 2025-04-05 08:30 | ECHO_ITS ---
Transesophageal Echo Report Ht (in): 72 Wt (lb): 225 Exam Location: Echo Lab Status: Preadmit Boarder Hand: Kylie Alexander Indications: Procedure Performed: BP: 173 / 110 HR: 80 MEASUREMENTS DOPPLER MR Peak Velocity 475.0 cm/s MR Peak Gradient 90.3 mmHg (Male / Female) Normal Values Medications 8mg versed 125 mcg fentanyl FINDINGS Left Ventricle Normal left ventricular size, wall thickness, systolic function with no obvious regional wall motion abnormalities. The ejection fraction is visually estimated at 55-60 %. Right Ventricle The right ventricle is normal in size and systolic function. Left Atrium The left atrial cavity size is moderately increased. Right Atrium The right atrium is normal by two-dimensional imaging, color flow and Doppler imaging with no structural abnormalities, no thrombus formation present. Atrial Appendages The left atrial appendage appears normal with no evidence for thrombus. Atrial Septum The interatrial septum appears normal with no evidence of a shunt. No hrew-lh-phier shunt demonstrated by agitated saline injection. Aorta The aorta is normal by two-dimensional, color flow and Doppler interrogation. Mitral Valve Severe mitral regurgitation. Anteriorly directed mitral regurgitation jet. Systolic flow reversal in the pulmonary veins. Aortic Valve Ascending aorta mildly dilated measuring 3.5cm Tricuspid Valve The tricuspid valve is normal by two-dimensional, color flow and Doppler interrogation. There is mild tricuspid valve regurgitation. Pulmonic Valve The pulmonic valve is normal by two-dimensional, color flow and Doppler interrogation. There is no significant pulmonic valve regurgitation. Vessels The pulmonary artery appears normal. The inferior vena cava pulmonary and hepatic veins appear normal. Pericardium The pericardium is normal by two-dimensional imaging. There is no significant pericardial effusion. CONCLUSIONS Indication: Severe MR. nonrheumatic mitral (valve) insufficiency Severe MR secondary prolapse of posterior leaflet - mostly P2 scallop prolapse with anteriorly directed mitral regurgitation jet. Systolic flow revesral seen in the pulmonary veins (3/3). Moderate to Severely dilated LA. LV normal function estimated EF 55-60%. Normal RV function No evidence of any left atrium or Left atrial appendage thrombus. Bubble study negative for PFO ASD. Mild TR. Trace PI. Ascending aorta mildly dilated measuring 3.5cm. No pericardial effusion. Jayden Hernández (Electronically Signed) Final Date: 05 April 2025 12:47
[2025-04-05] MEDS: DIAZEPAM 5 MG TABLET PO (08:46)
[2025-04-05] MEDS: BENZOCAINE 20% (Hurricaine) SPRAY 1 DOSE TOP (09:06)
[2025-04-05] MEDS: MIDAZOLAM INJ 1 MG/ML VIAL 2 ML 8 MG IVP (09:08)
[2025-04-05] MEDS: fentaNYL CIT INJ 50 mCg/ML AMP 2ML 125 MCG IVP (09:08)
[2025-04-05] MEDS: ONDANSETRON INJ 2 MG/ML INJ 2 ML 4 MG IVP (09:20)
[2025-04-05] MEDS: hydrALAZINE INJ 20 MG/ML VIAL IVP (09:23)
== END 2025-04-05 10:30 | disposition home or self-care (01) ==
PROVIDERS: Referring Provider Internal Medicine Cardiovascular Disease; Visit Provider Internal Medicine Cardiovascular Disease
PROC: (CPT 93312; principal; 2025-04-05 08:30)
DX: I34.0 Nonrheumatic mitral (valve) insufficiency (principal); R01.1 Cardiac murmur, unspecified; R00.2 Palpitations; R42 Dizziness and giddiness; Z72.0 Tobacco use; I10 Essential (primary) hypertension; E11.9 Type 2 diabetes mellitus without complications; Z86.711 Personal history of pulmonary embolism; I34.1 Nonrheumatic mitral (valve) prolapse
CPT/HCPCS: 36415; 80048; 85025; 85610; 85730; 93005; 93312; 99152; J0360; J2250; J2405; J3010; A9270

== ENCOUNTER 2025-04-12 10:12 | Day surgery (SDC) | payer BC, SELFPAY ==
[2025-04-07 09:40] VITALS: BMI 30.5
--- NOTE | 2025-04-08 07:00 | EKG_ITS ---
[facility] Test Date: 2025-04-08 Pat Name: LETITIA DAWSON Department: Room: - Gender: Female Store Clerk Checker: CORAL : 1975 Requested By: Jayden Hernández Order Number: [id number] Reading MD: Jayden Hernández Measurements Intervals [place] Rate: 65 P: 72 [place]: 142 QRS: 81 QRSD: 75 T: 71 QT: 418 QTc: 438 Interpretive Statements SINUS RHYTHM EARLY REPOLARIZATION [ST ELEVATION WITH NORMALLY INFLECTED T WAVE] MINIMAL ST DEPRESSION [0.025+ mV ST DEPRESSION] Compared to ECG 04/04/2025 09:58:35 Early repolarization now present ST (T wave) deviation now present Sinus arrhythmia no longer present Myocardial infarct finding no longer present /store/S0/[id number]/[id number].pdf
[2025-04-08 12:22] LABS: Basophils # (Auto) 0.1 Thou/mm3 (0.0-0.2); Basophils % (Auto) 1 % (0-2.5); Eosinophils # (Auto) 0.2 Thou/mm3 (0.0-0.5); Eosinophils % (Auto) 3 % (0-10); Hematocrit 43.6 % (36.0-46.0); Hemoglobin 14.1 g/dL (12.0-16.0); Immature Granulocytes Auto 0.01 Thou/mm3 (0.00-0.00); Lymphocytes # (Auto) 2.4 Thou/mm3 (1.0-4.8); Lymphocytes % (Auto) 33 % (10-50); Mean Corpuscular HGB Conc 32.3 g/dl (31.0-37.0); Mean Corpuscular Hemoglobin 28.7 pg (25.0-35.0); Mean Corpuscular Volume 89 fL (80-100); Monocytes # (Auto) 0.4 Thou/mm3 (0.0-0.8); Monocytes % (Auto) 6 % (0-12); Neutrophils # (Auto) 4.2 Thou/mm3 (1.8-7.7); Neutrophils % (Auto) 58 % (37-80); Nucleated Red Blood Cell # 0.00 Thou/mm3 (0.00-0.00); Nucleated Red Blood Cell % 0 /100 WBC (0); Platelet Count 204 Thou/mm3 (140-440); RDW Standard Deviation 51.2 fL (36.4-46.3); Red Blood Count 4.91 Miln/mm3 (4.00-5.20); White Blood Count 7.2 Thou/mm3 (3.6-11.0)
[2025-04-08 12:29] LABS: INR 1.0 (0.9-1.3); Partial Thromboplastin Time 25.9 Seconds (22.0-36.0); Prothrombin Time 11.1 Seconds (9.0-12.2)
[2025-04-08 12:32] LABS: HCG,Qualitative Serum Negative
[2025-04-08 12:35] LABS: Anion Gap 7 (7-16); BUN/Creatinine Ratio 14 Ratio (12-20); Blood Urea Nitrogen 17 mg/dL (9-23); Calcium 9.6 mg/dL (8.3-10.6); Carbon Dioxide 30.0 mMol/L (20.0-31.0); Chloride 107 mMol/L (98-107); Creatinine (Component) 1.2 mg/dL (0.6-1.3); Estimated Creatinine Clearance 77.5 mL/min (>60); Glucose 74 mg/dL (74-106); Osmolality,Calculated 287 (275-295); Potassium 3.9 mMol/L (3.4-5.1); Sodium 144 mMol/L (136-145); eGFR 56 See Note
[2025-04-12] VITALS (15 sets, daily range): BP systolic 153–191; BP diastolic 94–115; PULSE 73–104; RESP 18–27; TEMP 36.6–36.7; O2SAT 92–99; BMI 30.1
[2025-04-12] MEDS: hydrALAZINE INJ 20 MG/ML VIAL 10 MG IVP ×2 (14:50→15:25)
--- NOTE | 2025-04-12 15:00 | PC.NURSE ---
patient complaining of sob. notified md augustine. md javier gave orders.
[2025-04-12] MEDS: FAMOTIDINE INJ 10 MG/ML VIAL 2 ML 20 MG IVP (15:48)
[2025-04-12] MEDS: HYDROCORTISONE SOD SUCC INJ 100 MG 2 ML VIAL IV (15:48)
[2025-04-12] MEDS: ALBUTEROL RT 2.5 MG/3 ML NEBU INH (16:28)
[2025-04-13 09:09] LABS: O2 Saturation (Cath Lab) 84 % (91-98); Puncture Site Aortic
[2025-04-13 09:42] LABS: O2 Saturation (Cath Lab) 59 % (91-98); Puncture Site Pulmonary Artery
--- NOTE | 2025-04-13 14:03 | ESOP_ITS ---
Cardiac Cath Procedure Procedure Name Date of procedure: 04/12/2025 BABY REGISTRY SALES CONSULTANT: Jayden Hernández MD PROCEDURE PERFORMED: 1. Left heart and right heart cardiac catheterization including right, left coronary angiograms and left ventriculogram - CPT 09253 2. Ultrasound-guided access of the right radial artery and right femoral vein - CPT 68363 3. Conscious sedation for 30 minutes - CPT 91107 4. Supravalvular ascending aortography-CPT 04125 Procedure Narrative HISTORY AND INDICATIONS: Jayla Benson is a 49-year-old female with past medical history of severe MR , factor V disorder, HTN, DM, PE, who presented to my office for evaluation of symptoms of shortness of breath along with some chest pain. Patient had ischemic cardiac work up given severe MR. NST showed no significant evidence of inducible ischemia but There is decreased uptake in the apical segment both at stress and rest indicating artifact vs old infarct. EF at 69%. Normal TID and wall motion. Patient was recommended a SHERIF and LHC along with RHC. SHERIF was completed last week now which showed prolapse of the posterior mitral leaflet and patient is now scheduled for cardiac catheterization including a left and right cardiac catheterization for possible surgery for the severe MR. Discussed with patient risks, benefits and alternatives of performing left with coronary angiogram including the risks of bleeding, heart rate, stroke and with the procedure. Patient understands the risks and is willing to undergo the procedure. Consent provided for the same. H&P updated and consent was signed prior to the procedure. DESCRIPTION OF PROCEDURE: The patient was brought to the cardiac catheterization lab and all asceptic precautions were followed. Patient was given 1 Mg of Versed and 50 mcg of fentanyl for moderate conscious sedation. 2 mL of lidocaine was given in the right wrist. The right radial artery was accessed via the ultrasound guidance as well as micropuncture technique. A 6 [place]ian glide sheath was introduced. Patient already had right antecubital vein access placed. Right antecubital vein access was cleaned appropriately and all aseptic precautions was followed and exchanged into a micropuncture catheter with the help of a micropuncture wire and then introduced and a 7 Lithuanian sheath into the antecubital vein access with the help of a J-wire. A 6 [place] was used to direct catheter into the right atrium with inflated balloon. LHC findings: 1. Left ventricular ejection fraction was 60-65% without any regional wall motion abnormalities. LVEDP was normal at 18 mmHg. There was significant mitral regurguitaton. 2. Right dominant circulation left main artery is a large-caliber vessel without any significant stenosis. 3. LAD is a large sized artery with a medium size diagonal and does not show any significant disease. 4. LCx is a large sized artery with medium OM1 and small OM2 without any significant disease. 5. RCA is a large artery with nedium RPDA and RPL without any significant disease. RHC findings: Mean right atrial pressure was 9 mmHg. Right ventricular pressure was 93/-1 mmHg. Pulmonary artery pressure was 95/42 mmHg with a mean of 62 mmHg. Mean pulmonary capillary wedge pressure was 28 mmHg. TPG was 36 mmHg Pulmonary artery PA saturation was 59.3%.? Arterial saturation was 84% on room air. Cardiac output was 4.87 L/min and cardiac index was normal at 2.19 L/min/m? A radial band was used to achieve the hemostasis of the right radial artery access and manual hemostasis for the right antecubital fossa. Patient will be monitored in the cardiac information services tech for the next 2 to 3 hours and will be sent to the telemetry floor. Patient recommended to follow-up with me in the office within 7 days after discharge. Complications: None Specimens: None Blood loss: Estimated 5 ml Summary/findings: 1. Severe mitral regurgitation: LHC showed normal coronaries without any angiographically significant obstruction and few luminal irregularities. 2. LVEF normal at 55 to 60% 3. LVEDP mildly elevated at 18 mm hg. There was severe mitral regurguitation but no significant transvalvular aortic gradient. 4. Moderately to severely elevated right heart pressures with mean RA of 9 mm hg, mean PA of 62 mmhg and mean PCWP at 28 mm hg. Recommendations: 1. Patient will need evaluation of her severe mitral valve regurgitation and we will schedule her for a cardiothoracic surgery appointment to discuss further treatment options and recommend continue with aggressive medical treatment with diuresis 2. Patient recommended not to lift more than 5 lbs for the next 7-10 days and follow up with me in my office in 7 days.. Jayden Hernández MD Interventional Cardiology.
== END 2025-04-12 17:40 | disposition home or self-care (01) ==
PROVIDERS: PCP Family Medicine; Referring Provider Internal Medicine Cardiovascular Disease; Visit Provider Internal Medicine Cardiovascular Disease
PROC: (CPT 93460; principal; 2025-04-12 12:00)
DX: I34.0 Nonrheumatic mitral (valve) insufficiency (principal); E11.9 Type 2 diabetes mellitus without complications; I10 Essential (primary) hypertension; Z72.0 Tobacco use; Z86.711 Personal history of pulmonary embolism
CPT/HCPCS: 93460; 93567; 36415; 80048; 82810; 84703; 85025; 85610; 85730; 93005; 99152; 99153; A4649; C1726; C1769; C1887; C1894; J0168; J0360; J0461; J1200; J1643; J1720; J2250; J2312; J2371; J2405; J3010; J3490; C1725

== ENCOUNTER 2025-04-20 14:25 | Outpatient (AMB) | payer BC, SELFPAY ==
[2025-04-20 14:40] VITALS: BP 128/82; PULSE 93; RESP 18; TEMP 35.2; O2SAT 95
--- NOTE | 2025-04-20 14:40 | PD.RESCLINIC ---
Vital Signs 04/20/25 14:40 Weight 99.904 kg Weight Measurement Method Standing Scale BP 128/82 Blood Pressure Source Automatic Cuff Blood Pressure Location Right Upper Arm Position Sitting Respiration 18 Pulse 93 Pulse Source Monitor Temp 95.4 F L Temp Source Temporal Artery Scan Pulse Oximetry (%) 95 Oxygen Delivery Method Room Air Allergies/Meds Allergies & Medications Allergies No Known Allergies Allergy (Verified 04/20/25 14:41) Medication Reconciliation lisinopril 40 mg tablet 40 mg PO QDAY HTN #30 tabs 01/21/25 [Rx Confirmed 04/20/25] apixaban 5 mg tablet (Eliquis) 5 mg PO BID Pulmonary embolus #60 tabs 03/31/25 [Rx Confirmed 04/20/25] hydrochlorothiazide 25 mg tablet 25 mg PO QDAY HTN #30 tabs 03/31/25 [Rx Confirmed 04/20/25] carvedilol 6.25 mg tablet 6.25 mg PO Q12H 04/20/25 [History] fluticasone propionate 110 mcg/actuation HFA aerosol inhaler 2 puff inhalation BID #12 grams 04/20/25 [Rx] semaglutide 2 mg/dose (8 mg/3 mL) subcutaneous pen injector (Ozempic) 2 mg (0.75 mL) subcut QWEEK #3 mL 04/20/25 [Rx] MA Intake Visit Data Collection New Patient or Established: Established Patient (seen at [facility] within 3 years) Seen by Clinical Staff ONLY (RN/MA): No PCP or OBGYN visit in last 3 months: No Do You Feel Safe at Home: Yes Authorities Contacted: N/A Smoking Status Smoking Status: Current every day smoker Cessation Counseling Provided: LEITTIA was advised that quitting smoking is the single most important factor to protect the health of themselves and their family. Discussed the benefits of quitting smoking with patient. Encouraged patient to quit smoking and provided Cessation assistance materials and resources. Tobacco Use: Cigarette Years smoked: 33 Are you interested in quitting?: Yes Would you like additional Smoking Cessation Counseling?: No Immunization / Flu Flu Vaccine in the Last 12 Months: No Flu Vaccine Exclusion Criteria: No Exclusion Criteria Past Medical History Past Medical History NEUROLOGIC: Negative Neurological Disorders CARDIAC: Positive Cardiac Disorders, Aneurysm and Hypertension; Negative Congestive Heart Failure RESPIRATORY: Positive Bronchitis and Pneumonia; Negative Chronic Obstructive Pulmonary Disease (COPD) or Asthma GASTROINTESTINAL: Negative Gastrointestinal Disorders (aneurysm) GENITOURINARY: Negative Renal Disease REPRODUCTIVE: Positive Previous Pregnancies ENDOCRINE: Negative Diabetes Mellitus Type 1 or Diabetes Mellitus Type 2 HEMATOLOGIC: Positive 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) and Clotting Problems (factor 5); Negative Sickle Cell Disease OTHER HISTORY: Negative Autoimmune Disease Family History FAMILY HISTORY: Positive Family Psychiatric Problems, Family Respiratory Disorders, Family Cardiac Disorders, Family Gastrointestinal Problems, Family Cancer and Family Surgery; Negative Family Anesthesia Reaction Surgical History SURGICAL: Positive Tubal Ligation Social History SMOKING STATUS: Smoking status: Current every day smoker PACK YEARS: Pack-Years: 33 ALCOHOL: Alcohol Intake: Never ALCOHOL FREQUENCY: Alcohol Intake Frequency: A Few Times a Month HOUSING: Housing: House LIVES WITH: Lives With: Alone Patient Portal Questionaires PHQ-9 PHQ-2 Over the last 2 weeks, how often have you been bothered by any of the following problems? 1. Little interest or pleasure in doing things: not at all PHQ-9 8. Moving or speaking so slowly that other people could have noticed? - Or the opposite - being so fidgety or restless that you have been moving around a lot more than usual: not at all Source: Developed by Drs. Khoa Toledo, Mariam Metcalf, Vj Crandall and colleagues, with an educational carina from [employer]. Social History Living Situation History Housing: House Tobacco History Smoking Status: Current every day smoker Packs per Day: 2 Pack-Years: 33 Alcohol History Alcohol Intake: Never Alcohol Intake Frequency: A Few Times a Month Domestic Abuse History Do You Feel Safe at Home: Yes Review of Systems Report any current symptoms Only answer those that you have currently: Past Medical History Past Medical History Have you ever been diagnosed with any of the following: Cardiology Problems Aneurysm: Yes Congestive Heart Failure: No Hypertension: Yes Respiratory Problems Chronic Obstructive Pulmonary Disease (COPD): No Asthma: No Bronchitis: Yes Pneumonia: Yes Genital/Urinary Problems Renal Disease: No Reproductive Problems Previous Pregnancies: Yes Endocrine Problems Diabetes Mellitus Type 1: No Diabetes Mellitus Type 2: No Blood Problems Sickle Cell Disease: No Clotting Problems: Yes (factor 5) Other Problems Autoimmune Disease: No History of Present Illness HPI Narrative 08/12/2024 49-year-old female with past medical history of factor V Leyden mutation, HTN, aneurysm and [id number] smoking history presents as walk-in to clinic for acute dyspnea. Patient is concerned she has pneumonia or blood clots in her lungs. Patient endorses paroxysmal nocturnal dyspnea, orthopnea which improves when sitting up or sleeping on her left side, and dyspnea on exertion (gets SOB when walking to daughter's house, 4 houses away). Dyspnea has been going on for last 2 weeks, and is apparent during conversation with patient. Patient endorses having flulike symptoms approximately 1 week ago, and endorses fever, chills, palpitations, pleuritic chest pain, N/V/D/abd pain, and LUTS which have all resolved however productive cough of yellow sputum remains. Dyspnea has not improved with her inhaler which she uses 2-4 times per day. Additionally, patient mentions she has not taken Eliquis in approximately 1 month. 11/03/24 49 y/o female patient with significant medical history for HTN, factor V Leyden mutation and current smoker came to clinic for lab results and medication refill. Patient was last seen in clinic on 08/12/24 for chest pain and SOB. Since last visit, patient is doing well, does not complain of chest pain or SOB. Patient continues to smoke, but is willing to quit. She was prescribed nicotine patch but patient has not started it yet. Labs were completed in [facility], reviewed lab with patient. CBC and CMP indicated mild elevation of HgB, Hct, creatinine (1.19). Most likely due to concentration/dehydration. Patient admits not drinking enough water but does drink soda. Educated and encouraged patient with smoking cessation. Refilled Ozempic for patient, she has approximetly lost 30 lbs since starting medicaiton. Will follow up with patient in x2 months. 01/24/25 49-year-old female with past medical history of factor V Leyden mutation, HTN, aneurysm and [id number] smoking history presents to clinic for ED follow up. Patient was seen 01/21/25 for dyspnea and again 01/22/25 for submandibular gland swelling. Patient found to have significantly elevated BNP and uncontrolled HTN both times. Was prescribed amlodipine, Lasix, course of Augmentin and prednisone. Also had soft tissue neck CT which showed sclerotic lesion C7 left vertebral body pedicle and lamina. 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 Reports dyspnea on exertion, orthopnea. Ordered new echo, stopped amlodipine, started hydralazine, referred to farm management professor, will get MRI cervical spine. Follow up in 2 weeks. 02/23/25: 49 y/o F presents to office for follow up. Patient has not had ordered MRI. Echo was taken, showed significant mitral regurgitation with dilated atrium. Based on echo, may have beginnings of pulmonary HTN. Patient reports BP has improved, symptomated dyspnea on exertion and BLE edema improved with hydralazine and lasix. Referred patient to farm management professor Dr. Hernández who read the echo. Follow up in one month. 04/20/25: Patient presents to office for follow up. Recently was seen by cardiology Dr. Hernández for severe mitral regurgitation, received LHC and RHC which did not show signioficant artery stenosis/blockage. Patient started on coreg, hydralazine was held. Patient received referral for surgery for mitral valve replacement, pending appointment. Patient complaning of mild cough productive of clear sputum with mild SOB since SHERIF. Mild wheezing/tightness of auscultation of lungs, patient history of smoking. Referral for PFT, Flovent ordered. Review of Systems Review of Systems Systems Reviewed: All systems reviewed, normal except as documented Objective/Exam Narrative Physical exam: PE: Gen: Well-developed and well-nourished. HEENT: NCAT, PERRLA, EOMI, MMM, anicteric conjunctivae. Nontender submandibular glands. CVS: normal S1 and S2. RRR. Systolic murmur at apex Resp: No rhonchi, rales, crackles. Diffuse mild wheezing/tightness. Abd: soft, non-tender, non-distended. MSK: Good ROM in BUE & BLE. No edema. Bilateral tortuous veins. Neuro: CN II-XII grossly intact. Strength 5/5 in BUE & BLE. Alert and oriented x3. Psych: appropriate mood and affect. Assessment & Plan Diagnosis / Problem List (1) Cough productive of clear sputum: Status: Acute Assessment & Plan: Patient complains fo cough productive of clear sputum with associated SOB x 2 weeks, started after SHERIF. On exam, diffuse mild wheezing /tightness. Patient has history of smoking. Has taken albuterol in the past, stopped in setting of cardiac conditions with newly initated Coreg. Plan: - Referral for PFTs - Flovent 110 mcg 2 puffs BID (2) Mitral regurgitation due to cusp prolapse: Status: Acute Assessment & Plan: Echo ordered due to symptoms of CHF with elevated BNP. Echo showed significant posterior mitral valve prolapse with severe MR. Pulmonary vein flow reversal. Mildly dilated LV with normal LV function with an EF of 55 to 60%. Mildly elevated RVSP at 30 to 35 mmHg. Severe LA dilatation and the mild RA dilatation. LHC/RHC did not show significant stenosis/obstruction. Referral for surgery for mitral valove replacement. Plan: - Continue anti-hypertensives - Follow up with surgery (3) Hypertension: Status: Chronic Qualifiers: Hypertension type: primary hypertension Qualified Code(s): I10 - Essential (primary) hypertension Assessment & Plan: Patient has history of hypertension, uncontrolled despite treatment with lisinopril and hydrochlorothiazide. Home BP typically greater than 160 systolic. Patient reports improvement in home BP after medication change, but does not check regularly. Office BP well controlled. Plan: - Lisinopril 40 mg daily - Hydrochlorothiazide 25 mg daily - Coreg 6.25mg BID (4) Obesity (BMI 30.0-34.9): Status: Acute Assessment & Plan: Patient history of obesity. Previously treated with ozempic with significant weight loss. Currently 100kg, has noted cardiac conditions in form of severe mitral regurgitation with symptoms. Plan: - Resume Ozempic at 2 mg/dose weekly Plan Plan of care discussed with attending Dr. Aggarwal. Gregorio Lara MD PGY-1 Orders: Referrals Pulmonary Function Study Referral Gregorio Lara MD Additional Assessment Attending note: I, Baron Aggarwal MD, attest that I was physically present for the olivares portions of the service and evaluated the patient with the resident and I reviewed and discussed the case with the resident and agree with the resident's findings and plans of care as documented above. Baron Aggarwal MD Physician Billing Established Patient Established Patient: E/M Level 3-CPT 33734 Office Procedures [facility] Level of Care Nursing/Assessment Patient Status: Established Patient Nursing Assessment/Reassessment: Medication Reconciliation, Update PMH in EMR and Vital Signs Coordination of Care: Complex Care and Chronic Disease 1-5, Education Complex Pt/Fam and Staff clarify orders Established Patient Charge Established Patient Point Assignment: 85 Established Patient Point Charge: Level 3 (80-115)
== END 2025-04-20 15:05 | disposition home or self-care (01) ==
PROVIDERS: Supervising Provider Internal Medicine
DX: R05.8 Other specified cough (principal); I34.1 Nonrheumatic mitral (valve) prolapse; I10 Essential (primary) hypertension; E66.9 Obesity, unspecified
CPT/HCPCS: 99213; G0463